=== PATIENT | female | born 1960 | race Two or more races ===

== ENCOUNTER 2022-06-20 07:37 | Outpatient (REF) | payer OTHER, SELFPAY ==
[2022-06-20 11:13] LABS: MANUAL DIFF FLAG NO
[2022-06-20 11:23] LABS: Basophils Absolute Auto 0.1 X10*3/uL (0.0-0.2); Basophils Percent Auto 1.4 % (0-2); Eosinophils Absolute Auto 0.2 X10*3/uL (0.0-0.4); Hematocrit 38.5 % (37.0-47.0); Hemoglobin 12.2 g/dl (12.0-16.0); Imm Gran Abs Auto 0.01 X10*3/uL (0.00-0.03); Imm Gran Pct Auto 0.2 % (0.0-0.4); Lymphocytes Absolute Auto 0.8 X10*3/uL (1.2-4.9); Lymphocytes Percent Auto 15.8 % (20-40); Mean Corpuscular HGB Conc 31.7 g/dl (31.0-35.0); Mean Corpuscular Hemoglobin 28.4 pg (27.0-33.0); Mean Corpuscular Volume 89.7 fL (80.0-98.0); Mean Platelet Volume 12.5 fL (9.4-12.3); Monocytes Absolute Auto 0.5 X10*3/uL (0.1-1.2); Monocytes Percent Auto 9.6 % (2-11); Neutrophils Absolute Auto 3.5 x10*3/uL (2.0-8.3); Platelet Count 185 X10*3/uL (160-400); Red Blood Count 4.29 X10*6/uL (4.20-5.50); Red Cell Distribution Width 12.6 % (11.0-16.0)
[2022-06-20 12:04] LABS: Alanine Aminotransferase 11 U/L (0-31); Albumin Level 4.2 g/dL (3.5-5.0); Alkaline Phosphatase 48 U/L (39-117); Anion Gap 14 (12-20); Aspartate Amino Transferase 16 U/L (5-31); Bilirubin Total 0.4 mg/dL (0.0-1.0); Blood Urea Nitrogen 20 mg/dL (9-16); Calcium 9.1 mg/dL (8.4-10.2); Carbon Dioxide 28 mmol/L (22-29); Chloride 107 mmol/L (96-108); Cholesterol 260 mg/dL; Estimated Glomerular Filt Rate > 60; Glucose Fasting 83 mg/dL (60-99); HDL Cholesterol 45 mg/dL; LDL Cholesterol Calculated 173 mg/dl; Potassium 4.6 mmol/L (3.3-5.1); Sodium 144 mmol/L (135-145); Total Protein 6.8 g/dL (6.5-8.0); Triglycerides 214 mg/dL
[2022-06-20 12:25] LABS: TSH reflex Free T4 1.96 uIU/mL (0.32-4.0)
[2022-06-20 12:35] LABS: Folate > 20.0 ng/mL (> or = 4.0); Vitamin B12 1049 pg/mL (200-900)
== END 2022-06-20 07:38 | disposition home or self-care (01) ==
LOC: HO.WFDLDS 07:37
PROVIDERS: Visit Provider Family Medicine
DX: Z00.00 Encounter for general adult medical examination without abnormal findings (principal); E53.8 Deficiency of other specified B group vitamins
CPT/HCPCS: 36415; 80053; 80061; 82607; 82746; 84443; 85025

== ENCOUNTER → 2022-09-11 10:36 | Outpatient (BNVA) | payer OTHER, SELFPAY | PROVIDERS: PCP Family Medicine; Visit Provider Psychiatry & Neurology Neurology | DX: G35 Multiple sclerosis (principal) | CPT/HCPCS: 99202 ==

== ENCOUNTER → 2022-12-31 08:11 | Outpatient (BNVA) | payer OTHER, SELFPAY | PROVIDERS: PCP Family Medicine; Visit Provider Physician Assistant | DX: K59.09 Other constipation (principal); Z12.11 Encounter for screening for malignant neoplasm of colon | CPT/HCPCS: 99202 ==

== ENCOUNTER 2022-12-31 09:05 | Outpatient (REF) | payer OTHER, SELFPAY ==
[2022-12-31 12:09] LABS: Cholesterol 269 mg/dL; HDL Cholesterol 54 mg/dL; LDL Cholesterol Calculated 197 mg/dl; Triglycerides 90 mg/dL
== END 2022-12-31 09:06 | disposition home or self-care (01) ==
LOC: HO.WFDLDS 09:05
PROVIDERS: Visit Provider Family Medicine
DX: Z01.818 Encounter for other preprocedural examination (principal); K59.00 Constipation, unspecified; E78.5 Hyperlipidemia, unspecified
CPT/HCPCS: 36415; 80061

== ENCOUNTER 2023-10-21 06:49 | Day surgery (SDC) | payer OTHER, SELFPAY ==
--- NOTE | 2023-10-20 13:33 | HO.ANESPROP2 ---
Documented by User: Hannah Thurston NP 10/20/23 13:34 HPI - Anesthesia Eval Consult details Narrative: 63yo F for Colonoscopy PMFSH Active Problems Active Problems: All Active Problems (Updated 12/31/22 @ 09:08 by Nelli Campbell PA-C) Encounter for screening colonoscopy (Acute) Multiple sclerosis (Acute) Postmenopausal (Acute) Immunization counseling (Acute) Screening for osteoporosis (Acute) Constipation (Acute) Hyperlipidemia (Acute) Screening for cervical cancer (Acute) Screening for colon cancer (Acute) Encounter for general adult medical examination without abnormal findings (Acute) Unsteady gait (Acute) Depression (Acute) Toothache (Acute) Screening for breast cancer (Acute) Multiple sclerosis (Acute) Laboratory exam ordered as part of routine general medical examination (Acute) Past Medical History Medical History Multiple sclerosis Social History Social History Housing: Apartment Alcohol intake: never Patient Tobacco Use Status: Never used Tobacco e-Cigarette/Vaping Use: Never Used Second Hand Smoke Exposure: No Are you DNR?: No Advance Directives: No Advance Directives Information Provided: Yes Nutrition Risks: No Nutritional Risk service: No Current occupational status: disabled Current occupational exposures/hazards: No Cognitive needs: No Hearing needs: No Vision needs: No Meds Allergies Allergy/AdvReac Type Severity Reaction Status Date / Time Sulfa (Sulfonamide Allergy Mild Rash Verified 10/21/23 07:08 Antibiotics) Penicillins Allergy Rash Verified 10/21/23 07:07 Home Medications Medication Instructions Recorded Confirmed Last Taken Type vitamin B complex 1 tab PO DAILY 09/11/22 09/11/22 Unknown History Assessment and Plan Assessment Anesthesia Assessment: Chart Reviewed Documented by User: London Morales MD 10/21/23 07:55 PMFSH Past Medical History Medical History Multiple sclerosis Family History Family history of problems with anesthesia: No Surgical History History of Problems with Anesthesia: No Social History Social History Housing: Apartment Alcohol intake: never Patient Tobacco Use Status: Never used Tobacco e-Cigarette/Vaping Use: Never Used Second Hand Smoke Exposure: No Are you DNR?: No Advance Directives: No Advance Directives Information Provided: Yes Nutrition Risks: No Nutritional Risk service: No Current occupational status: disabled Current occupational exposures/hazards: No Cognitive needs: No Hearing needs: No Vision needs: No Meds Allergies Allergy/AdvReac Type Severity Reaction Status Date / Time Sulfa (Sulfonamide Allergy Mild Rash Verified 10/21/23 07:08 Antibiotics) Penicillins Allergy Rash Verified 10/21/23 07:07 Home Medications Medication Instructions Recorded Confirmed Last Taken Type vitamin B complex 1 tab PO DAILY 09/11/22 09/11/22 Unknown History Exam Airway Mallampati Class: II TM Dist: >3cm Neck ROM: Limited Heart: rrr Lungs: cta Assessment and Plan Assessment Anesthesia Assessment: Anesthesia Plan Discussed Final Anesthetic Review Family History of Problems with Anesthesia: No History of Problems with Anesthesia: No NPO: Yes ASA Class: III Patient Risk: Intermediate Procedure Risk: Low Anesthetic Plan Anesthetic Plan: MAC: and Agree w/ Assess. and Plan Disposition: Standard PACU
[2023-10-21 06:52] VITALS: BMI 29.9
[2023-10-21 07:06] VITALS: BP 133/70; PULSE 81; RESP 20; TEMP 36.4; O2SAT 97
[2023-10-21] MEDS: Lactated Ringers 1,000 ML 100 ML IVCONT (07:33)
--- NOTE | 2023-10-21 08:07 | MHC.SHP ---
Pre-Procedural Eval Section A Date of Service: 10/21/23 Section B Chief Complaint: Constipation, unspecified Relevant Family History (Specify if Yes): No Relevant Social History: None Present Medications: see Short Stay Collaborative assessment Medical History: Significant History (Multiple sclerosis) History of Previous Operations: No relevant previous surgery Allergies: Allergies Allergy/AdvReac Type Severity Reaction Status Date / Time Sulfa (Sulfonamide Allergy Mild Rash Verified 10/21/23 07:08 Antibiotics) Penicillins Allergy Rash Verified 10/21/23 07:07 Review of Systems Sugical H&P ROS: Negative: Constitution, Cardiovascular, Respiratory, Neurological, Psychiatric, Hem-Onc, Allergic/Immunologic, Gastrointestinal, Genitourinary, Musculoskeletal, Integumentary, Endocrine and Eyes/Ears/Nose/Throat Exam Surgical H&P Exam: Normal: HEENT, Normal: Heart, Normal: Lungs, Normal: Extremities, Normal: Abdomen and Normal: Skin and Significant Findings: Neurological (weakness in arms and legs) Plan Diagnosis/Plan: Unchanged I have reviewed the history and physical and performed a pertinent physical examination on my patient. No changes have occurred unless specified. Time Spent With Patient Time: Total time managing care of this patient today ____ minutes.
--- NOTE | 2023-10-21 08:40 | P.OP_ITS ---
Operative Note Operative Note Date of Service: 10/21/23 Narrative: Operative Information Procedure Description: Colonoscopy Indication: screening Anesthesia: MAC COLONOSCOPY Instrument: Olympus variable stiffness pediatric scope 190L Colonoscopy Monitoring: Vital signs and clinical assessment, continuous EKG monitoring, Pulse oximetry, Carbon Dioxide monitoring and blood pressure monitoring were done throughout the procedure. Colon withdrawal time was 8 minutes. Procedure: The patient was placed in the left lateral decubitis position and pre-procedure medications were administered. After a digital rectal examination of the ano-rectum, the video colonoscope was inserted into the rectum and advanced through the colon to the cecum/TI. The colonoscope was slowly withdrawn in a retrograde panoramic fashion and the colon mucosa was carefully examined including a retroflexed view of the rectum. Findings and interventions are described below. Procedure Difficulty: moderate,t ortuous colon Findings: Terminal Ileum-normal Cecum:normal Ascending Colon: normal Transverse Colon -normal Descending Colon:normal Sigmoid Colon: normal Rectum: Retroflexion with small internal hemorrhoids, grade I Anorectum - normal Colon preparation: [place] Bowel Preparation Scale Right colon; 3 Transverse colon: 3 Left colon; 3 (0 = Unprepared colon segment with mucosa not seen due to solid stool that cannot be cleared. 1 = Portion of mucosa of the colon segment seen, but other areas of the colon segment not well seen due to staining, residual stool and/or opaque liquid. 2 = Minor amount of residual staining, small fragments of stool and/or opaque liquid, but mucosa of colon segment seen well. 3 = Entire mucosa of colon segment seen well with no residual staining, small fragments of stool or opaque liquid) Impression and Post Procedure Diagnosis: internal hemorrhoids Plan: High fiber diet leaflet Avoid straining at stool, epsom salts and sitz bath, anusol supps or cream Repeat Colonoscopy in 10 years or earlier if clinically indicated Above findings were reviewed with the patient and relevant handouts were provided if indicated.
[2023-10-21 08:42] VITALS: BP 137/66; PULSE 66; RESP 16; TEMP 36.8; O2SAT 99
[2023-10-21 08:57] VITALS: BP 134/66; PULSE 70; RESP 16; O2SAT 100
== END 2023-10-21 09:35 | disposition home or self-care (01) ==
PROVIDERS: PCP Family Medicine; Visit Provider Internal Medicine Gastroenterology
PROC: 0DJD8ZZ Inspection of Lower Intestinal Tract, Via Natural or Artificial Opening Endoscopic (ICD-10-PCS; CPT 45378; principal; 2023-10-21 08:20)
DX: Z12.11 Encounter for screening for malignant neoplasm of colon (principal); K56.2 Volvulus; K64.0 First degree hemorrhoids; K59.00 Constipation, unspecified; G35 Multiple sclerosis; Z79.899 Other long term (current) drug therapy; E78.5 Hyperlipidemia, unspecified
CPT/HCPCS: 45378; J2704

== ENCOUNTER → 2023-10-21 06:49 | Outpatient (BNV) | payer OTHER, SELFPAY | PROVIDERS: PCP Family Medicine; Visit Provider Internal Medicine Gastroenterology | DX: Z12.11 Encounter for screening for malignant neoplasm of colon (principal); K64.0 First degree hemorrhoids | CPT/HCPCS: 45378 ==

== ENCOUNTER 2025-01-25 08:22 | Outpatient (AMB) | payer OTHER, SELFPAY ==
--- NOTE | 2025-01-25 08:37 | A.OFFPC_ITS ---
Vital Signs 01/25/25 08:41 Height 5 ft Weight 147 lb 4 oz BMI 28.8 BP 120/70 Blood Pressure Location Rt brachial Position Sitting Respiration 14 Pulse 62 Pulse Source Pulse Oximeter Temp 98.6 F Temp Source Oral Pulse Oximetry (%) 99 Oxygen Delivery Method Room Air Intake Visit Reasons: Swelling in the Right Foot/ ophthalmology referral Intake Note: Patient is here today to followup on right foot swelling and a ophthalmology referral Hospice Home Health Aide Required: No Allergies Sulfa (Sulfonamide Antibiotics) Allergy (Mild, Verified 01/25/25 08:40) Rash Penicillins Allergy (Verified 01/25/25 08:40) Rash Medication List - Last Reconciled 01/25/25 by Michel Khan MD carbamazepine ER (Tegretol XR) mg PO escitalopram oxalate 10 mg PO DAILY vitamin B complex 1 tab PO DAILY Tobacco use date assessed: 06/19/22 [facility] Medical History (Updated 01/25/25 @ 09:09 by Michel Khan MD) Multiple sclerosis Surgical History (Updated 10/24/23 @ 11:50 by Jacqueline Franklin) Hx of colonoscopy Social History Housing: Apartment Alcohol intake: never Patient Tobacco Use Status: Never used Tobacco e-Cigarette/Vaping Use: Never Used Second Hand Smoke Exposure: No service: No Current occupational status: disabled Current occupational exposures/hazards: No Cognitive needs: No Hearing needs: No Vision needs: No Questionnaire PHQ-9 Over the last 2 weeks, how often have you been bothered by any of the following problems? 1. Little interest or pleasure in doing things: several days 2. Feeling down, depressed, or hopeless: several days 3. Trouble falling or staying asleep, or sleeping too much: several days 4. Feeling tired or having little energy: several days 5. Poor appetite or overeating: not at all 6. Feeling bad about yourself - or that you are a failure or have let yourself or your family down: several days 7. Trouble concentrating on things, such as reading the newspaper or watching television: several days 8. Moving or speaking so slowly that other people could have noticed. Or the opposite - being so fidgety or restless that you have been moving around a lot more than usual: not at all 9. Thoughts that you would be better off or of hurting yourself in some way: several days Total score: 7 Source: Developed by Drs. Meir Young, Tiff Mane, Chucky Navarro and colleagues, with an educational ayala from [employer]. Thrive Questionnaire I am a: Parent/Caregiver What is your living situation today?: I have a steady place to live Within the past 12 months, did the food you bought not last and you didn't have the money to get more?: Never true Within the past 12 months, did you worry whether your food would run out before you got money to buy more?: Never true Do you have trouble paying for medicines?: No Do you have trouble getting transportation to medical appointments?: Yes Do you have trouble paying your heating and electricity bill?: No Do you have trouble taking care of your child, family member or friend?: Yes Do you have trouble with day-to-day activities such as bathing, preparing meals, shopping, managing finances, etc.?: No Are you currently unemployed and looking for a job?: No Are you interested in more education?: Yes Please select the resources that you would like help with: Transportation, Care for elder or disabled and Daily support Currently or been in a relationship where the following occur: No concerns reported THRIVE Score: 1 AUDIT C Alcohol Use Questionnaire (AUDIT-C) 1. How often do you have a drink containing alcohol?: Never Total Score: 0 JORDAN-7 AMB Questionnaire JORDAN-7 Date JORDAN - 7 assessed: 06/19/22 Feeling nervous, anxious, or on edge: 0 = Not at all Not being able to stop or control worryin = Not at all Worrying too much about different things: 0 = Not at all Trouble relaxin = Several days Being so restless that it is hard to sit still: 0 = Not at all Becoming easily annoyed or irritable: 0 = Not at all Feeling afraid as if something awful might happen: 0 = Not at all Total JORDAN-7 score (0-4 normal; 5-9 mild; 10-14 moderate; 15-21 severe): 1 Source: Developed by Tiff Trevizo Kurt Kroenke and colleagues, with an educational ayala from [employer]. Review of Systems Const Denies chills, Denies fatigue, Denies fever(s), Denies headache(s) and Denies weakness ENT Denies dizziness and Denies headache(s) Card Denies dyspnea Resp Denies cough, Denies dyspnea, Denies wheezing and Denies other (shortness of breath) Musc Denies numbness and Denies tingling Neuro Denies dizziness, Denies headache(s), Denies numbness, Denies tingling and Denies weakness Psych Denies anxiety and Denies depression Endo Denies fatigue Aller/Immun Denies wheezing Physical exam (Primary Care) Vital Signs: Last Vital Signs Temp 98.6 F 01/25/25 08:41 Pulse 62 01/25/25 08:41 Resp 14 01/25/25 08:41 BP 120/70 01/25/25 08:41 Pulse Ox 99 01/25/25 08:41 Oxygen Delivery Method Room Air 01/25/25 08:41 BMI result Body Mass Index 28.8 Tobacco/Smoking Status: Tobacco use Status Tobacco use date assessed 06/19/22 01/25/25 08:38 Patient Tobacco Use Status Never used Tobacco 01/25/25 08:38 e-Cigarette/Vaping Use Never Used 01/25/25 08:38 PHQ-9: PHQ-9 Score PHQ-9: Total score 7 01/25/25 08:38 Currently or been in a relationship where the following occur: No concerns reported Const General: well developed; No acute distress Nutritional Appearance: well nourished Orientation/consciousness: patient oriented x3 HENMT Head: Yes normocephalic and Yes atraumatic Eyes General: appearance normal, both eyes and all related structures Pupils: Equal, round and reactive pupils present EOM: EOMs intact bilaterally Resp Effort & Inspection: normal respiratory effort Neuro General: patient oriented x3 and gait normal Cranial nerves: Yes Equal, round and reactive pupils present Extrem Other: Mild R foot and ankle swelling, trace edema. No tenderness Psych Affect: normal affect Coding Level of Care Code Est Pt Level 4 (88179) Diagnoses Swelling of right foot M79.89 Muscle ache of extremity M79.18 Generalized weakness R53.1 Multiple sclerosis G35 Assessment & Plan Assessment & Plan (1) Swelling of right foot: Code(s): M79.89 - Other specified soft tissue disorders Category: Medical Plan: Swelling?at?right?foot.??S/p?mild spring. This?is?nearly?resolved Elevate?foot (2) Muscle ache of extremity: Code(s): M79.18 - Myalgia, other site Category: Medical Plan: Diffuse?muscle?aches?and?worse?left?shoulder?and?left?hip Ice/heat,?NSAIDs?and?will?refer?to?[facility]?for physical?therapy (3) Generalized weakness: Code(s): R53.1 - Weakness Category: Medical Plan: History?of?multiple?sclerosis?and?has?generalized?weakness Will?have?[facility]?start?physical?therapy (4) Multiple sclerosis: Code(s): G35 - Multiple sclerosis Category: Medical Plan: Followed?at[facility] Recent?MRI?shows?stability?of?lesions?in?brain Recently?switched?gabapentin?to?carbamazepine Continues?Ocrevus Stable Follow-up?with?Neurology?at?[facility]?as?recommended Orders: Orders Complete Blood Count Auto Diff Today Z00.00 - Encounter for general adult medical examination without abnormal findings Microalbumin, Random (w Creat) Today I10 - Essential (primary) hypertension TSH reflex Free T4 Today Z00.00 - Encounter for general adult medical examination without abnormal findings MM tomosynthesis screening BI Today Z12.31 - Encounter for screening mammogram for malignant neoplasm of breast Comprehensive [place]. Panel Fast Today Z00.00 - Encounter for general adult medical examination without abnormal findings Lipid Panel Today Z00.00 - Encounter for general adult medical examination without abnormal findings UA and rflx microscopic Today Z00.00 - Encounter for general adult medical examination without abnormal findings XR DEXA axial skeleton Today M81.0 - Age-related osteoporosis without current pathological fracture [facility]errals [facility] Referral G35 - Multiple sclerosis, M79.18 - Myalgia, other site, R26.81 - Unsteadiness on feet, R53.1 - Weakness Medications: New naproxen 500 mg PO BID 30 days PRN 60 tabs 1RF pain
[2025-01-25 08:41] VITALS: BP 120/70; PULSE 62; RESP 14; TEMP 37; O2SAT 99; BMI 28.8
--- OUTSIDE RECORDS SUMMARY | 2025-01-25 09:01 | XMS_ITS ---
Author Name [facility] Organization Unknown History of Medication Use Medication Directions Dispensed Refills Start Date End Date Status ocrelizumab (OCREVUS) 600 mg in sodium chloride (NS) 0.9 % 500 mL IVPB 600 mg, Intravenous, Once, On Fri02/17/24 at 1115, For 1 doseMust use in-line 0.22 micron filter. ??- Infusion Rate for first full 600 mg dose or reaction with previous infusion: Start at 40 mL/hr. Increase by 40 mL/hr every 30 minutes. Maximum rate: 200 mL/hr. Duration: 3.5 hours or longer.??- Infusi 3 02/17/20 24 completed gabapentin (NEURONTIN) 100 MG capsule Take 1 capsule (100 mg total) by mouth 3 (three) times a day. 4 active B Complex Vitamins (B COMPLEX 1 PO) Take by mouth. acti ve acetaminophen (TYLENOL) tablet 975 mg 975 mg, Oral, Once, On Fri02/17/24 at 1115, For 1 doseGive 30 minutes prior to ocrelizumab. 3 02/17/20 24 completed gabapentin (NEURONTIN) 400 MG capsule Take 1 capsule (400 mg total) by mouth 3 (three) times a day. 4 active diphenhydrAMINE (BENADRYL) injection 50 mg 50 mg, Intravenous, Once, On Fri02/17/24 at 1115, For 1 doseGive 30 minutes prior to ocrelizumab. IV push over 2-3 minutes.??See PO diphenhydramine order. Please give PO or IV.??Common Side Effects: Drowsiness, stomach upset, confusion, dry mouth.??Administer undiluted. Maximum rate 25 mg/min. 3 02/17/20 24 completed vitamin B-12 (CYANOCOBALAMIN) 100 MCG tablet Take 0.5 tablets (50 mcg total) by mouth daily. active Problems Problem Status Onset Date Problem Type Date of Resoluti on Source Multiple sclerosis active 2023-02-04 ProblemAct [id number]
--- OUTSIDE RECORDS SUMMARY | 2025-01-25 09:01 | XMS_ITS | Clinical Summary ---
Author Organization [address] [facility] Address [address] [place] [address] Phone Care Team Providers Care Fitness Trainer Name Role Phone Michel Khan MD Primary Care Provider Allergies Active Allergy Reactions Criticality Noted Date Comments Penicillins 01/02/2023 Sulfa (Sulfonamide Antibiotics) 12/18 Medications vit B complx/folic acid/lysine (B COMPLEX VITAMINS PO) Take by mouth. Active CALCIUM CARBONATE-VITAM IN D3 ORAL Take by mouth. Active ergocalciferol (VITAMIN D-2) 1,250 mcg (50,000 unit) capsule Take 1 capsule (50,000 Units total) by mouth once a week. 05/02/2023 Active cyanocobalamin (VITAMIN B-12) 100 mcg tablet Take 0.5 tablets (50 mcg total) by mouth daily. Active escitalopram (Lexapro) 10 mg tablet Take 1 tablet (10 mg total) by mouth 1 (one) time each day. 30 each 5 10/04/2024 Active carBAMazepine XR (TEGretol XR) 100 mg 12 hr tablet Take 1 tablet (100 mg total) by mouth at bedtime for 5 days, THEN 1 tablet (100 mg total) 2 (two) times a day for 7 days, THEN 2 tablets (200 mg total) 2 (two) times a day. Do not crush, chew, or split.. 259 tablet 11/12/2024 Active gabapentin (NEURONTIN) 400 mg capsule Take 1 capsule (400 mg total) by mouth 3 (three) times a day for 5 days, THEN 1 capsule (400 mg total) 2 (two) times a day for 7 days, THEN 1 capsule (400 mg total) at bedtime. 90 capsule 3 11/12/2024 Active Active Problems Problem Noted Date Diagnosed Date Multiple sclerosis 02/04/2023 Encounters Date Type Department Care Team Description 01/05/2025 Telephone [facility] [place] Outpatient Rehabilititation - [address] [phone] Meghan Low MD OCREVUS AUTH RQST; AUTH NOT REQRD 12/24/2024 9:30 AM EST Office Visit [address] [phone] Theresa Kendrick PA Multiple sclerosis ([facility]) (Primary Dx); Trigeminal neuralgia 12/03/2024 2:33 PM EST - 12/03/2024 11:59 PM EST Hospital Encounter [facility] MRI [address] [place] [phone] MS (multiple sclerosis) ([facility]) Discharge Disposition: Home or Self Care 12/03/2024 2:22 PM EST - 12/03/2024 11:59 PM EST Hospital Encounter [facility] MRI [address] [place] [phone] MS (multiple sclerosis) ([facility]) Discharge Disposition: Home or Self Care 11/12/2024 12:30 PM EST Office Visit [address] [phone] Meghan Low MD Multiple sclerosis ([facility]) (Primary Dx); High risk medication use; Trigeminal neuralgia; Gait abnormality from Last 3 Months Medical History Medical History Date Comments MS (multiple sclerosis) ([facility]) DX:MS (multiple sclerosis) ([facility]) Social History Tobacco Use Types Packs/Day Years Used Date Smoking Tobacco: Never Smokeless Tobacco: Never Tobacco Cessation:Counseling Given: Not Answered Alcohol Use Standard Drinks/Week Comments Never 0 (1 standard drink = 0.6 oz pur e alcohol) Comments Unknown Sex and Gender Information Value Date Recorded Sex Assigned at Not on file Legal Sex Female 8:59 PM EST Gender Identity Not on file Sexual Orientation Not on file Obstetrics History Last Filed Vital Signs Vital Sign Reading Time Taken Comments Blood Pressure 133/76 11/12/2024 12:32 PM EST Pulse 65 11/12/2024 12:32 PM EST Temperature 36.4 ??C (97.6 ??F) 11/12/2024 12:[address] Respiratory Rate - - Oxygen Saturation 99% 11/12/2024 12:32 PM EST Inhaled Oxygen Concentration - - Weight 65.8 kg (145 lb) 12/03/2024 3:01 PM EST Height 152.4 cm (5') 05/25/2024 10:14 AM EDT Body Mass Index 28.32 05/25/2024 10:14 AM EDT Plan of Treatment Upcoming Encounters Date Type Department Care Team (Late st Contact Info) Description 02/17/2025 8:00 AM EDT Appointment [facility] [place] Outpatient Rehabil[facility]itation [address] [phone] Health Maintenance Due Date Last Done Comments Breast Cancer Screening 1960 DTaP,Tdap,and Td Vaccines (1 - Tdap) 1981 Cervical Cancer Screening: P ap Smear 1983 Pneumococcal Vaccine: 50+ Ye ars (1 of 1 - PCV) 02/25/2012 Zoster Vaccines (1 of 2) 02/25/2012 Colorectal Cancer Screening: Colonoscopy 01/12/2023 Depression Screening 01/12/2023 HIV Screening 01/12/2023 Hepatitis C Screening 01/12/2023 Social Influencers of Health Screening 01/12/2023 COVID-19 Vaccine (1 - 2023-2 5 season) 2024 Influenza Vaccine (#1) 2024 09/05/2022 RSV Immunization Patients 60 + Years Old (1 - 1-dose 75+ series) 2037 HIB Vaccines Aged Out No longer eligi ble based on patient's age to complete this topic HPV Vaccines Aged Out No longer eligi ble based on patient's age to complete this topic Hepatitis A Vaccines Aged Out No long er eligible based on patient's age to complete this topic Hepatitis B Vaccines Aged Out No long er eligible based on patient's age to complete this topic IPV Vaccines Aged Out No longer eligi ble based on patient's age to complete this topic MMR Vaccines Aged Out No longer eligi ble based on patient's age to complete this topic Meningococcal ACWY Vaccine Aged Out N o longer eligible based on patient's age to complete this topic Meningococcal B Vacine Aged Out No lo nger eligible based on patient's age to complete this topic Pneumococcal Vaccine: Pediat rics (0 to 5 Years) and At-Risk Patients (6 to 64 Years) Aged Out No longer eligi ble based on patient's age to complete this topic RSV Immunization Patients Un matheus 20 months Aged Out No longer eligible b ased on patient's age to complete this topic Varicella Vaccines Aged Out No longer eligible based on patient's age to complete this topic Procedures Procedure Name Priority Date/Time Associated Diagnosis Comments LOZADA URINE CULTURE TUBE Routine 12/24/2024 10:59 AM EST Multiple sclerosis (CMS/HCC) URINALYSIS WITH REFLEX MICROSCOPIC AND CULTURE Routine 12/24/2024 10:59 AM EST Multiple sclerosis (CMS/HCC) URINALYSIS WITH REFLEX MICROSCOPIC AND CULTURE Routine 12/24/2024 10:59 AM EST Multiple sclerosis (CMS/HCC) CULTURE URINE Routine 12/24/2024 10:59 AM EST Multiple sclerosis (CMS/HCC) CARBAMAZEPINE LEVEL, TOTAL Routine 12/24/2024 9:37 AM EST Multiple sclerosis (CMS/HCC) Trigeminal neuralgia MR CERVICAL SPINE WO AND W CONTRAST Routine 12/03/2024 4:18 PM EST MS (multiple sclerosis) (CMS/HCC) MR BRAIN WO AND W CONTRAST Routine 12/03/2024 4:18 PM EST MS (multiple sclerosis) (CMS/HCC) from Last 3 Months Results * (ABNORMAL) Urinalysis with reflex microscopic and culture (12/24/2024 10:59 AM EST) Specific [place] Urine 1.018 1.003 - 1.030 LAB URINALYSIS - AUTOMATED METHOD 12/24/2024 2:23 PM [facility] pH, Urine 6.5 5.0 - 8.0 pH LAB URINALYSIS - AUTOMATED METHOD 12/24/2024 2:23 PM [facility] Leukocytes, Urine Trace(A) Negative LAB URINALYSIS - AUTOMATED METHOD 12/24/2024 2:23 PM [facility] Nitrite, Urine Negative Negative LAB URINALYSIS - AUTOMATED METHOD 12/24/2024 2:23 PM [facility] Protein, Urine Negative <=Trace mg/dL LAB URINALYSIS - AUTOMATED METHOD 12/24/2024 2:23 PM [facility] Glucose, Urine Negative Negative mg/dL LAB URINALYSIS - AUTOMATED METHOD 12/24/2024 2:23 PM [facility] Ketones, Urine Negative Negative mg/dL LAB URINALYSIS - AUTOMATED METHOD 12/24/2024 2:23 PM [facility] Urobilinogen, Urine 0.2 0.2 - 1.0 mg/dL LAB URINALYSIS - AUTOMATED METHOD 12/24/2024 2:23 PM [facility] Bilirubin, Urine Negative Negative LAB URINALYSIS - AUTOMATED METHOD 12/24/2024 2:23 PM [facility] Blood, Urine Negative Negative LAB URINALYSIS - AUTOMATED METHOD 12/24/2024 2:23 PM [facility] RBC, Urine 2 0 - 4 /HPF LAB URINALYSIS - AUTOMATED METHOD 12/24/2024 2:23 PM [facility] WBC, Urine 6.4(H) 0 - 4 /HPF LAB URINALYSIS - AUTOMATED METHOD 12/24/2024 2:23 PM [facility] Squamous Epithelial, Urine 25 0 - 60 /LPF LAB URINALYSIS - AUTOMATED METHOD 12/24/2024 2:23 PM [facility] Bacteria, Urine Negative Negative /HPF LAB URINALYSIS - AUTOMATED METHOD 12/24/2024 2:23 PM [facility] Hyaline Casts, Urine 0.0 0 - 3 /LPF LAB URINALYSIS - AUTOMATED METHOD 12/24/2024 2:23 PM [facility] Urine Urine specimen obtained by clean catch procedure / Unknown Non-blood Collection / Unknown 12/24/2024 10:59 AM EST 12/24/2024 10:59 AM EST [facility] URINE ORDERABLES Final R esult Performing Organization Address [facility]/ZIP Co de Phone Number [facility] [address] [place] [address], [place] [phone] * Lozada urine culture tube (12/24/2024 10:59 AM EST) Extra Tube Hold for add-ons. 12/24/2024 4:01 PM [facility] Comment:Auto resulted. Urine Urine specimen obtained by clean catch procedure / Unknown Non-blood Collection / Unknown 12/24/2024 10:59 AM EST 12/24/2024 10:59 AM EST [facility] URINE ORDERABLES Final R esult Performing Organization Address City/[facility]/ZIP Co de Phone Number [facility] [address] [place] [address], [place] [phone] * Culture urine (12/24/2024 10:59 AM EST) Culture, Urine >100,000 CFU/mL Mixed urogenital jayant, no uropathogens present. Suggest repeat specimen if clinically indicated. 12/26/2024 10:11 AM [facility] Urine Urine specimen obtained by clean catch procedure / Unknown Non-blood Collection / Unknown 12/24/2024 10:59 AM EST 12/24/2024 2:23 PM EST Theresa SWEENEY LAB MICROBIOLOGY - GENERAL O RDERABLES Final Result Performing Organization Address [facility]/ZIP Co de Phone Number [facility] [address] [place] [address], [place] [phone] * (ABNORMAL) Carbamazepine level, total (12/24/2024 9:37 AM EST) Carbamazepine Level 5.4(L) 8.0 - 12.0 mcg/mL LAB CHEMISTRY METHOD 12/24/2024 2:36 PM EST [facility] Blood Venous blood specimen / Unknown Venipuncture / Unknown 12/24/2024 9:37 AM EST 12/24/2024 9:37 AM EST Theresasheeba Kendrick PA LAB BLOOD ORDERABLES Final R esult Performing Organization Address [facility] Co de Phone Number [facility] [address] [place] [address], [place] [phone] * MR Cervical Spine wo and w Contrast (12/03/2024 4:18 PM EST) Anatomical Region Laterality Modality C-spine, Spine Magnetic Resonan ce 12/06/2024 4:55 PM EST Impressions 12/06/2024 5:59 PM EST Evaluation for demyelinating lesions in the cervical cord is limited by significant motion artifact on the sagittal FLAIR sequence. ??There is no appreciable interval change in appearance of the cord and no contrast enhancement to suggest active demyelination. -------- FINAL REPORT -------- Dictated By: Syed Puckett Dictated Date: 12/06/2024 16:55 ET Assigned Physician: Syed Puckett Reviewed and Electronically Signed By: Syed Puckett Signed Date: 12/06/2024 17:59 ET Workstation ID: [id number] Transcribed By: Self Edit Transcribed Date: 12/06/2024 16:55 ET Narrative 12/06/2024 5:59 PM EST PROCEDURE: MRI of the cervical spine with intravenous contrast. HISTORY: Multiple sclerosis, monitor. COMPARISON: 10/30/2023. TECHNIQUE: Sagittal and axial multisequence MRI of the cervical spine with and without intravenous contrast. IV contrast dose: 13 mL Dotarem administered from a 15 mL vial with 2 mL discarded. FINDINGS: Please see the accompanying dedicated MRI brain report for findings involving the brain and skull base. The paraspinous soft tissues are normal. Straightening of the typical cervical lordosis. ??No concerning marrow infiltrative lesion. ??No listhesis. There is significant motion on the sagittal inversion recovery sequence which limits evaluation for demyelinating lesions in the cord. Patchy signal abnormality in the right lateral and left dorsal cord at the level of the superior C3 endplate is unchanged. ??A small lesion in the right lateral cord at the level of the superior C6 endplate is unchanged. ??No abnormal cord enhancement. Cervical disc levels: C2-3: The facet joints are fused. ??Mild endplate irregularity. ??No spinal or foraminal stenosis. C3-4: Mild endplate irregularity. ??Small left larger than right uncovertebral spurs. ??Mild bilateral facet arthropathy. ??No significant spinal or foraminal stenosis. C4-5: Mild endplate irregularity. ??Minimal bilateral uncovertebral spurs. ??Minimal degenerative irregularity of the facet joints. ??No significant spinal or foraminal stenosis. C5-6: Minimal endplate irregularity. ??No significant spinal or foraminal stenosis. C6-7: Minimal endplate irregularity. ??No spinal or foraminal stenosis. C7-T1: No significant disc or facet abnormality. ??No spinal or foraminal stenosis. Procedure Note Syed Puckett MD - 12/06/2024 PROCEDURE: MRI of the cervical spine with intravenous contrast. HISTORY: Multiple sclerosis, monitor. COMPARISON: 10/30/2023. TECHNIQUE: Sagittal and axial multisequence MRI of the cervical spine withand without intravenous contrast. IV contrast dose: 13 mL Dotarem administered from a 15 mL vial with 2 mLdiscarded. FINDINGS: Please see the accompanying dedicated MRI brain report for findingsinvolving the brain and skull base. The paraspinous soft tissues are normal. Straightening of the typical cervical lordosis. No concerning marrowinfiltrative lesion. No listhesis. There is significant motion on the sagittal inversion recovery sequencewhich limits evaluation for demyelinating lesions in the cord. Patchy signal abnormality in the right lateral and left dorsal cord at thelevel of the superior C3 endplate is unchanged. A small lesion in theright lateral cord at the level of the superior C6 endplate is unchanged.No abnormal cord enhancement. Cervical disc levels: C2-3: The facet joints are fused. Mild endplate irregularity. No spinalor foraminal stenosis. C3-4: Mild endplate irregularity. Small left larger than rightuncovertebral spurs. Mild bilateral facet arthropathy. No significantspinal or foraminal stenosis. C4-5: Mild endplate irregularity. Minimal bilateral uncovertebral spurs.Minimal degenerative irregularity of the facet joints. No significantspinal or foraminal stenosis. C5-6: Minimal endplate irregularity. No significant spinal or foraminalstenosis. C6-7: Minimal endplate irregularity. No spinal or foraminal stenosis. C7-T1: No significant disc or facet abnormality. No spinal or foraminalstenosis. IMPRESSION: Evaluation for demyelinating lesions in the cervical cord is limited bysignificant motion artifact on the sagittal FLAIR sequence. There is noappreciable interval change in appearance of the cord and no contrastenhancement to suggest active demyelination. -------- FINAL REPORT -------- Dictated By: Syed Puckett Dictated Date: 12/06/2024 16:55 ET Assigned Physician: Syed Puckett Reviewed and Electronically Signed By: Syed Puckett Signed Date: 12/06/2024 17:59 ET Workstation ID: [id number] Transcribed By: Self Edit Transcribed Date: 12/06/2024 16:55 ET us Theresa SWEENEY IMMonique MRI PROCEDURES Final Res ult * MR Brain wo and w Contrast (12/03/2024 4:18 PM EST) Anatomical Region Laterality Modality Head and Neck Magnetic Resonan ce 12/06/2024 4:55 PM EST Impressions 12/06/2024 6:08 PM EST Stable multifocal demyelinating plaques, involving the juxtacortical and periventricular supratentorial white matter, brainstem, and cerebellum. ??No new lesion or evidence of active demyelination. -------- FINAL REPORT -------- Dictated By: Syed Puckett Dictated Date: 12/06/2024 16:55 ET Assigned Physician: Syed Puckett Reviewed and Electronically Signed By: Syed Puckett Signed Date: 12/06/2024 18:08 ET Workstation ID: [id number] Transcribed By: Self Edit Transcribed Date: 12/06/2024 16:55 ET Narrative 12/06/2024 6:08 PM EST PROCEDURE: Contrast-enhanced MRI of the brain. HISTORY: Multiple sclerosis, monitor. TECHNIQUE: Multiplanar multisequence MRI of the brain with and without intravenous contrast. IV CONTRAST DOSE: 13 mL Dotarem administered from a 15 mL vial with 2 mL discarded. COMPARISON: 10/30/2023. FINDINGS BRAIN: Confluent T2 signal abnormality in the periventricular white matter and corpus callosum and multifocal juxtacortical lesions. ??Stable patchy signal abnormality in the brainstem and middle cerebral cerebellar peduncles. ??Scattered cerebellar lesions are also unchanged. ??Some of the lesions are hypointense on the T1- weighted spin-echo sequence; the T1 lesion burden is unchanged. ?? There is stable diffuse atrophy of the corpus callosum. ??No diffusion abnormality. ??No mass or extra- axial fluid collection. ??No hydrocephalus. ??The major intracranial flow voids are preserved. ??Generalized sulcal and ventricular prominence which is advanced for age. ??No abnormal enhancement. ??The volume acquisition and postcontrast gradient echo sequence is limited by motion. ??No appreciable abnormal enhancement. ORBITS: Stable signal abnormality in the posterior right optic nerve. SINUSES/MASTOIDS: Normal. CALVARIUM: Normal. OTHER: The visualized skull base soft tissues are normal. ??The C2-3 facet joints are fused. Procedure Note Syed Puckett MD - 12/06/2024 PROCEDURE: Contrast-enhanced MRI of the brain. HISTORY: Multiple sclerosis, monitor. TECHNIQUE: Multiplanar multisequence MRI of the brain with and withoutintravenous contrast. IV CONTRAST DOSE: 13 mL Dotarem administered from a 15 mL vial with 2 mLdiscarded. COMPARISON: 10/30/2023. FINDINGS BRAIN: Confluent T2 signal abnormality in the periventricular white matterand corpus callosum and multifocal juxtacortical lesions. Stable patchysignal abnormality in the brainstem and middle cerebral cerebellarpeduncles. Scattered cerebellar lesions are also unchanged. Some of thelesions are hypointense on the T1-weighted spin-echo sequence; the I3rpnkbs burden is unchanged. There is stable diffuse atrophy of thecorpus callosum. No diffusion abnormality. No mass or extra-axial fluidcollection. No hydrocephalus. The major intracranial flow voids arepreserved. Generalized sulcal and ventricular prominence which isadvanced for age. No abnormal enhancement. The volume acquisition andpostcontrast gradient echo sequence is limited by motion. No appreciableabnormal enhancement. ORBITS: Stable signal abnormality in the posterior right optic nerve. SINUSES/MASTOIDS: Normal. CALVARIUM: Normal. OTHER: The visualized skull base soft tissues are normal. The C2-3 facetjoints are fused. IMPRESSION: Stable multifocal demyelinating plaques, involving the juxtacortical andperiventricular supratentorial white matter, brainstem, and cerebellum.No new lesion or evidence of active demyelination. -------- FINAL REPORT -------- Dictated By: Syed Puckett Dictated Date: 12/06/2024 16:55 ET Assigned Physician: Syed Puckett Reviewed and Electronically Signed By: Syed Puckett Signed Date: 12/06/2024 18:08 ET Workstation ID: [id number] Transcribed By: Self Edit Transcribed Date: 12/06/2024 16:55 ET Theresa SWEENEY IMMonique MRI PROCEDURES Final Res ult from Last 3 Months Insurance * Guarantor: Ema Lilly Account Type Relation to Patient Date of Phone Billing Address Personal/Family Self [address] [place] [address] [facility] Care Teams Fitness Trainer Relationship Specialty Start Date End Date Michel Khan MD [address] [place] [address] Dr Dom [place] PCP - General Family Medicine 09/16/22
--- OUTSIDE RECORDS SUMMARY | 2025-01-25 09:03 | XMS_ITS | Encounter Summary ---
Author Organization [facility] Address [address] [place] [address] Care Team Providers Care Electrician Supervisor Airplane Name Role Phone Michel Khan MD Primary Care Provider Reason for Visit * Reason Onset Date Comments OCREVUS AUTH RQST 01/05/2025 AUTH NOT REQRD 01/05/2025 Encounter Details Date Type Department Care Team (Late st Contact Info) Description 01/05/2025 Telephone [facility] [place] [facility] - [place] [address] [phone] Meghan Low MD 175 [facility] [address] [place] [phone] OCREVUS AUTH RQST; AUTH NOT REQRD Social History Tobacco Use Types Packs/Day Years Used Date Smoking Tobacco: Never Smokeless Tobacco: Never Alcohol Use Standard Drinks/Week Comments Never 0 (1 standard drink = 0.6 oz pur e alcohol) Comments Unknown Sex and Gender Information Value Date Recorded Sex Assigned at Not on file Legal Sex Female 8:59 PM EST Gender Identity Not on file Sexual Orientation Not on file documented as of this encounter Progress Notes * Raudel Bingham - 01/06/2025 7:54 AM EST Per Giovanni- auth not reqrd for Ocrevus thru medical benefits. * Raudel Bingham - 01/05/2025 11:02 AM EST Ocrevus auth rqst forms faxed to [facility]- pending. documented in this encounter Plan of Treatment Upcoming Encounters Date Type Department Care Team (Late st Contact Info) Description 02/17/2025 8:00 AM EDT Appointment [facility] [place] [facility] - [address] [phone] documented as of this encounter Visit Diagnoses Not on filedocumented in this encounter Care Teams Electrician Supervisor Airplane Relationship Specialty Start Date End Date Michel Khan MD [address] [place] [address] Dr Hernandez [facility] [place], [place] PCP - General Family Medicine 09/16/22 documented as of this encounter
--- OUTSIDE RECORDS SUMMARY | 2025-01-25 09:03 | XMS_ITS | Encounter Summary ---
Author Organization [facility] Address [address] [place] [address] Care Team Providers Care Dependency Counselor Name Role Phone Michel Khan MD Primary Care Provider Encounter Details Date Type Department Care Team (Late st Contact Info) Description 08/18/2024 7:55 AM EDT Hospital Encounter TH HISTORIC ENCOUNTERS [facility] ONLY Meghan Low MD [address] [facility] [address] [place] [address] Social History Tobacco Use Types Packs/Day Years [...] on file documented as of this encounter Last Filed Vital Signs Vital Sign Reading Time Taken Comments Blood Pressure 124/78 08/18/2024 8:23 AM EDT Sit ting Left arm Pulse 65 08/18/2024 8:23 AM EDT Temperature - - Respiratory Rate - - Oxygen Saturation - - Inhaled Oxygen Concentration - - Weight 66.2 kg (146 lb) 05/25/2024 10:1 4 AM EDT Height 152.4 cm (5') 05/25/2024 10:14 AM EDT Body Mass Index 28.51 05/25/2024 10:14 AM EDT documented in this encounter Progress Notes * Meghan Low MD - 08/18/2024 8:00 AM EDT [facility] MULTIPLE S[facility]OSIS CC: MS HPI: Patient is a 64 y.o. year old female who presents for follow-up regarding ongoing management of multiple sclerosis. Disease Summary Date of onset/Initial symptom presentation:2002 Date of diagnosis of MS: Disease course at onset: RRMS Current disease course: active secondary progressive Last MS exacerbation: Previous disease therapies(reason for switch): betaserom, copaxone, avonex, gilenya, lemetrada Current disease therapy: Ocrevus September 2021 -off till 01/2023 another 2 split dose Most recent MRI Brain:10/30/23- stable T2 hyperintensity more confluent supra and infratentorial Most recent MRI Cervical spine:01/2023 stable and improved Most recent MRI Thoracic spine: 01/2023 CSF: JCV serology result and date: MS mimickers: mog/aqp4 ab negative SSA SSB negative vit d 24 vitamin B12 1200 Interval history Patient is here for follow up No new neurological symptom concerning for demyelination since last visit Patient still on Ocrevus tolerating it well she is getting her infusion today Since last visit she has been overall stable she denies any change in her symptoms she has been pain-free since she was in the gabapentin 400 milligram 3 times a day question of making his sleepy during the day, She denies any change in her bowel or bladder function She has been experiencing some nausea earlier today nothing persistent will add Pepcid to her infusion She had her PT OT sessions she is still getting more sessions she is being fitted for a right AFO she had her speech evaluation and she is supposed to get more sessions she have not started that yet Prolonged discussion about the patient mental health and opportunities to get out including going to the senior center also referred to behavioral health for evaluation and management Last visit History: Patient returns for EDSS exam. She continues Ocrevus for disease-modifying therapy. Her son is present and assists with history. She denies new neurological symptoms suggestive of demyelinating event since she was last seen in the office. She increased gabapentin to 400 mg tid just yesterday. Pt and her son both state that shehas not been .complaining of facial/jaw pain. She does feel that gabapentin is making her sleepy during the day but would like to continue the 400 mg dose for now. She denies new neurological symptoms suggestive of demyelinating event since she was last seen in the office. ?? At last visit we added gabapentin 100 mg tid for symptomatic treatment of facial pain. It does not sound like she has been taking this regularly. She continues to note episodes of right-sided jaw pain which happens in bursts and she will scream out according to her son. She did see her dentist after her last office visit with us and per patient's son did not think this was a dental problem. She has been using a mouthguard at night. ?? Review of Systems Constitutional: Positive for fatigue. Musculoskeletal: Positive for gait problem. Patient Active Problem List Diagnosis SNOMED CT(R) ??? Multiple sclerosis (HCC) MULTIPLE SCLEROSIS Current Outpatient Medications: ??? B Complex Vitamins (B COMPLEX 1 PO), Take by mouth., Disp: , Rfl: ??? Calcium Carb-Cholecalciferol (CALCIUM 1000 + D PO), Take by mouth., Disp: , Rfl: ??? ergocalciferol (VITAMIN D2) capsule 04521 units, Take 1 capsule (50,000 Units total) by mouth once a week., Disp: 4 capsule, Rfl: 12 ??? gabapentin (NEURONTIN) 400 MG capsule, Take 1 capsule (400 mg total) by mouth 3 (three) times aday., Disp: 90 capsule, Rfl: 5 ??? vitamin B-12 (CYANOCOBALAMIN) 100 MCG tablet, Take 0.5 tablets (50 mcg total) by mouth daily., Disp: , Rfl: Neuro Exam BP 124/78 (BP Location: Left arm, Patient Position: Sitting) Pulse 65 Temp 96.8 ??F (36 ??C) (Temporal) There is no height or weight on file to calculate BMI. MS: Oriented to the year month not the day oriented to the state not the city smoking CN: perrla,V1-3 intact to LT, face symmetric, bilateral SCM/trapezius 5/5, tongue/uvula/palate midline Motor: 5/5 in all extremities right lower extremity with weaker ankle dorsiflexion Sensation: Intact to light touch, temperature, and decreased vibration distally in both legs and hands Reflexes: 2+ in bilateral biceps and patellae Cerebellar: FNF intact bilaterally, FFM intact bilaterally, SHON intact bilaterally, difficult tandem gait, rombergPositive Walk with a walker slow steppage 25 foot timed walk: Last visit 13.1, 14.7 sec EDSS score: 6.5 A/P: Multiple Sclerosis: ??Ema Lilly is a 64 y.o. year old female with active secondary progressive multiple sclerosis treated with Ocrevus for disease modifying therapy she is clinically and radiologically stable we will continue current plan She will continue use of gabapentin 400 mg tid at this time and will monitor daytime sleepiness. She can adjust the dose into 400 mg in the afternoon and 800 at bedtime discussed with the patient Prolonged discussion with the patient about her social and memory and how to impact following speech and cognitive therapy also discussed other resources like going to [facility] A. Disease modifying therapy plan: -Continue Ocrevus per [facility] protocol -Screening labs as per protocol -MRI brain with and without contrast will be performed annually to assess for radiologic stability (to be ordered next visit) ?? B. Symptomatic treatment plan: Facial pain: continue gabapentin 400 mg tid versus changes to 400 mg in the afternoon 800 mg at night Gait impairment: Physical therapy has been scheduled Memory impairment: speech/language pathology follow-up Mood changes:discussed different options for lifestyle modification referral to behavioral health Follow-up in 4 months or sooner as needed. Patient was encouraged to call the office with any questions or concerns/change in symptoms. The patient and I discussed the clinical picture during today's appointment. Additional time was spent prior to the actual appointment reviewing records, lab values and imaging results and preparing documentation for today's visit. There was also time spent following the in person visit documenting, arranging for further diagnostic testing and follow-up appointments. The entire time spent in thisprocess was greater than 40 minutes. The majority of the actual qvjt-da-cnju visit was spent counseling the patient with respect to the current neurological picture. Meghan Low MD documented in this encounter Plan of Treatment Upcoming Encounters Date Type Department Care Team (Late st Contact Info) Description 02/17/2025 8:00 AM EDT Appointment [facility] [place] Outpatient Rehabilititation - [place] 175 [facility] [address] [place] [address] documented as of this encounter Visit Diagnoses Not on filedocumented in this encounter Care Teams Dependency Counselor Relationship Specialty Start Date End Date Michel Khan MD [address] [place] [address] [address] [place], [place] PCP - General Family Medicine 09/16/22 documented as of this encounter
--- OUTSIDE RECORDS SUMMARY | 2025-01-25 09:03 | XMS_ITS | Encounter Summary ---
Author Organization [facility] Address [address] [place] [address] Care Team Providers Care Senior Software Test Engineer Name Role Phone Michel Khan MD Primary Care Provider [phone] Encounter Details Date Type Department Care Team (Late st Contact Info) Description 08/18/2024 8:00 AM EDT Hospital Encounter TH HISTORIC ENCOUNTERS [facility] ONLY Social History Tobacco Use Types Packs/Day Years [...] Sign Reading Time Taken Comments Blood Pressure - - Pulse - - Temperature - - Respiratory Rate - - Oxygen Saturation - - Inhaled Oxygen Concentration - - Weight 66.2 kg (146 lb) 05/25/2024 10:14 AM EDT Height 152.4 cm (5') 05/25/2024 10:14 AM EDT Body Mass Index 28.51 05/25/2024 10:14 AM EDT documented in this encounter Plan of Treatment Upcoming Encounters Date Type Department Care Team (Late st Contact Info) Description 02/17/2025 8:00 AM EDT Appointment [facility] Outpatient Rehabilititation - [place] 175 [facility] [address] [place] [address] documented as of this encounter Visit Diagnoses Not on filedocumented in this encounter Care Teams Senior Software Test Engineer Relationship Specialty Start Date End Date Michel Khan MD [address] [place] [address] Dr Hernandez [address] [place], [place] PCP - General Family Medicine 09/16/22 documented as of this encounter
--- OUTSIDE RECORDS SUMMARY | 2025-01-25 09:03 | XMS_ITS | Clinical Summary ---
Author Organization [facility] Address [address] [place] [address] Care Team Providers Care Goodwill Representative Name Role Phone Michel Khan MD Primary Care Provider Allergies Active Allergy Reactions Criticality Noted Date Comments Penicillins 01/02/2023 Sulfa Antibiotics 01/02/2023 Medications Medication Sig Dispensed Refills Start Date End Date Status B Complex Vitamins (B COMPLEX 1 PO) Take by mouth. 0 Acti ve Calcium Carb-Cholecalciferol (CALCIUM 1000 + D PO) Take by mouth. 0 Active vitamin B-12 (CYANOCOBALAMIN) 100 MCG tablet Take 0.5 tablets (50 mcg total) by mouth daily. 0 Active ergocalciferol (VITAMIN D2) capsule 18223 units Take 1 capsule (50,000 Units total) by mouth once a week. 4 capsule 12 02/18/2024 Active gabapentin (NEURONTIN) 400 MG capsule Take 1 capsule (400 mg total) by mouth 3 (three) times a day. 90 capsule 5 05/05/2024 Active Active Problems Problem Noted Date Diagnosed Date Multiple sclerosis 02/04/2023 Social History Tobacco Use Types Packs/Day Years Used Date Smoking Tobacco: Never Smokeless Tobacco: Never Tobacco Cessation:Counseling Given: Not Answered Alcohol Use Standard Drinks/Week Comments Never 0 (1 standard drink = 0.6 oz pur e alcohol) Sex and Gender Information Value Date Recorded Sex Assigned at Female 09/16/2022 1:35 PM EDT Gender Identity Not on file Sexual Orientation Not on file Job Start Date Occupation Industry Not on file Not on file Not on file Last Filed Vital Signs Vital Sign Reading Time Taken Comments Blood Pressure 136/72 08/18/2024 11:49 AM EDT Pulse 60 08/18/2024 11:49 AM EDT Temperature 36.2 ??C (97.1 ??F) 08/18/2024 11:49 AM E DT Respiratory Rate 18 08/18/2024 11:49 AM EDT Oxygen Saturation 98% 08/18/2024 11:49 AM EDT Inhaled Oxygen Concentration - - Weight 66.2 kg (146 lb) 05/25/2024 10:14 AM EDT Height 152.4 cm (5') 05/25/2024 10:14 AM EDT Body Mass Index 28.51 05/25/2024 10:14 AM EDT Plan of Treatment Health Maintenance Due Date Last Done Comments Hepatitis C Screening 1960 COVID-19 Vaccine (#1) 1960 Depression Screening 1974 BMI Counseling 02/25/1980 Preventative Health Evaluation 02/25/1980 DTap / Tdap / Td (1 - Tdap) 1981 Cervical Cancer Screening (P ap Smear) 1983 Colon Cancer Screening (Colonoscopy) 2007 Breast Cancer Screening (Mammogram) 02/25/2012 Shingrix-Zoster Vaccine (1 of 2) 02/25/2012 Influenza Vaccine (#1) 2024 RSV Adult > 60+ Yrs or Pregn ant (1 - 1-dose 75+ series) 2037 Hepatitis B Vaccines Aged Out No long er eligible based on patient's age to complete this topic Pneumococcal Vaccine Aged Out No long er eligible based on patient's age to complete this topic RSV Ped < 20 months Aged Out No longe r eligible based on patient's age to complete this topic Care Teams Goodwill Representative Relationship Specialty Start Date End Date Michel Khan MD [facility] [place] [address] PCP - General Family Medicine 09/16/22
== END 2025-01-25 09:10 | disposition home or self-care (01) ==
LOC: HO.HMCFM 08:22
PROVIDERS: PCP Family Medicine; Visit Provider Family Medicine
DX: M79.89 Other specified soft tissue disorders (principal); M79.18 Myalgia, other site; R53.1 Weakness; G35 Multiple sclerosis

== ENCOUNTER → 2025-01-25 08:22 | Outpatient (BNVA) | payer OTHER, SELFPAY | PROVIDERS: PCP Family Medicine; Visit Provider Family Medicine | DX: R60.0 Localized edema (principal); M79.18 Myalgia, other site; R53.1 Weakness; G35 Multiple sclerosis | CPT/HCPCS: 99212 ==

== ENCOUNTER 2025-01-25 09:31 | Outpatient (REF) | payer OTHER, SELFPAY ==
--- OUTSIDE RECORDS SUMMARY | 2025-01-25 10:43 | XMS_ITS | Clinical Summary ---
Author Organization 175 [facility] Address [address] [place] [address] Phone Care Team Providers Care Heel Cover Softener Name Role Phone Michel Khan MD Primary Care Provider [phone] Allergies Active Allergy Reactions Criticality Noted Date [...] Type Department Care Team Description 01/05/[address] [facility] [place] Outpatient Rehabilititation - [address] [phone] Meghan Low MD OCREVUS AUTH RQST; AUTH NOT REQRD 12/24/2024 9:30 AM EST Office Visit [address] [phone] Theresa Kendrick PA Multiple sclerosis ([facility]) (Primary Dx); Trigeminal neuralgia 12/03/2024 2:33 PM EST - 12/03/2024 11:59 PM EST Hospital Encounter [facility] MRI [address] [place] [phone] MS (multiple sclerosis) ([facility]) Discharge Disposition: Home or Self Care 12/03/2024 2:22 PM EST - 12/03/2024 11:59 PM EST Hospital Encounter [facility] MRI [address] [place] [address] MS (multiple sclerosis) ([facility]) Discharge Disposition: Home or Self Care 11/12/2024 12:30 PM EST Office Visit [address] [phone] Meghan Low MD Multiple sclerosis ([facility]) (Primary Dx); High risk medication use; Trigeminal neuralgia; Gait abnormality from Last 3 Months Medical History Medical History Date Comments MS (multiple sclerosis) ([facility]) DX:MS (multiple sclerosis) ([facility]) Social History Tobacco Use Types [...] Info) Description 02/17/2025 8:00 AM EDT Appointment [facility] [place] Outpatient Rehabilititation [address] [address] Health Maintenance Due Date Last [...] and culture (12/24/2024 10:59 AM EST) Specific [place] Urine 1.018 1.003 - 1.030 LAB URINALYSIS - AUTOMATED METHOD 12/24/2024 2:23 PM [facility] pH, Urine 6.5 5.0 - 8.0 pH LAB URINALYSIS - AUTOMATED METHOD 12/24/2024 2:23 PM [facility] Leukocytes, Urine Trace(A) Negative LAB URINALYSIS - AUTOMATED METHOD 12/24/2024 2:23 PM [facility] Nitrite, Urine Negative Negative LAB URINALYSIS - AUTOMATED METHOD 12/24/2024 2:23 PM [facility] Protein, Urine Negative <=Trace mg/dL LAB URINALYSIS - AUTOMATED METHOD 12/24/2024 2:23 PM [facility] Glucose, Urine Negative Negative mg/dL LAB URINALYSIS - AUTOMATED METHOD 12/24/2024 2:23 PM [facility] Ketones, Urine Negative Negative mg/dL LAB URINALYSIS - AUTOMATED METHOD 12/24/2024 2:23 PM [facility] Urobilinogen, Urine 0.2 0.2 - 1.0 mg/dL LAB URINALYSIS - AUTOMATED METHOD 12/24/2024 2:23 PM [facility] Bilirubin, Urine Negative Negative LAB URINALYSIS - AUTOMATED METHOD 12/24/2024 2:23 PM [facility] Blood, Urine Negative Negative LAB URINALYSIS - AUTOMATED METHOD 12/24/2024 2:23 PM [facility] RBC, Urine 2 0 - 4 /HPF LAB URINALYSIS - AUTOMATED METHOD 12/24/2024 2:23 PM [facility] WBC, Urine 6.4(H) 0 - 4 /HPF LAB URINALYSIS - AUTOMATED METHOD 12/24/2024 2:23 PM [facility] Squamous Epithelial, Urine 25 0 - 60 /LPF LAB URINALYSIS - AUTOMATED METHOD 12/24/2024 2:23 PM [facility] Bacteria, Urine Negative Negative /HPF LAB URINALYSIS - AUTOMATED METHOD 12/24/2024 2:23 PM [facility] Hyaline Casts, Urine 0.0 0 - 3 /LPF LAB URINALYSIS - AUTOMATED METHOD 12/24/2024 2:23 PM [facility] Urine Urine specimen obtained by clean catch procedure / Unknown Non-blood Collection / Unknown 12/24/2024 10:59 AM EST 12/24/2024 10:59 AM EST [facility] URINE ORDERABLES Final R esult Performing Organization Address [facility]/ZIP Co de Phone Number [facility] [address] [place] [address], [place] [phone] * Lozada urine culture tube (12/24/2024 10:59 AM EST) Extra Tube Hold for add-ons. 12/24/2024 4:01 PM [facility] Comment:Auto resulted. Urine Urine specimen obtained by clean catch procedure / Unknown Non-blood Collection / Unknown 12/24/2024 10:59 AM EST 12/24/2024 10:59 AM EST [facility] LAB URINE ORDERABLES Final R esult Performing Organization Address City/[facility]/ZIP Co de Phone Number [facility] [address] [place] [address], [place] [phone] * Culture urine (12/24/2024 10:59 AM EST) Culture, Urine >100,000 CFU/mL Mixed urogenital jayant, no uropathogens present. Suggest repeat specimen if clinically indicated. 12/26/2024 10:11 AM [facility] Urine Urine specimen obtained by clean catch procedure / Unknown Non-blood Collection / Unknown 12/24/2024 10:59 AM EST 12/24/2024 2:23 PM EST Theresa SWEENEY LAB MICROBIOLOGY - GENERAL O RDERABLES Final Result Performing Organization Address [facility]/ZIP Co de Phone Number [facility] [address] [place] [address], [place] [phone] * (ABNORMAL) Carbamazepine level, total (12/24/2024 9:37 AM EST) Carbamazepine Level 5.4(L) 8.0 - 12.0 mcg/mL LAB CHEMISTRY METHOD 12/24/2024 2:36 PM EST [facility] Blood Venous blood specimen / Unknown Venipuncture / Unknown 12/24/2024 9:37 AM EST 12/24/2024 9:37 AM EST Theresasheeba Kendrick PA LAB BLOOD ORDERABLES Final R esult Performing Organization Address [facility] Co de Phone Number [facility] [address] [place] [address], [place] [phone] * MR Cervical Spine wo and w [...] Signed Date: 12/06/2024 17:59 ET Workstation ID: [id number] Transcribed By: Self Edit Transcribed Date: 12/06/2024 [...] Signed Date: 12/06/2024 17:59 ET Workstation ID: [id number] Transcribed By: Self Edit Transcribed Date: 12/06/2024 [...] Signed Date: 12/06/2024 18:08 ET Workstation ID: [id number] Transcribed By: Self Edit Transcribed Date: 12/06/2024 [...] hypointense on the T1-weighted spin-echo sequence; the C1hdsutn burden is unchanged. There is stable diffuse [...] Signed Date: 12/06/2024 18:08 ET Workstation ID: [id number] Transcribed By: Self Edit Transcribed Date: 12/06/2024 16:55 ET Theresa SWEENEY IMMonique MRI PROCEDURES Final Res ult from Last 3 Months Insurance * Guarantor: Ema Lilly Account Type Relation to Patient Date of Phone Billing Address Personal/Family Self [address] [place] [address] [facility] Care Teams Heel Cover Softener Relationship Specialty Start Date End Date Michel Khan MD [address] [place] [address] Dr Dom [place] PCP - General Family Medicine 09/16/22
--- OUTSIDE RECORDS SUMMARY | 2025-01-25 10:44 | XMS_ITS | Clinical Summary ---
Author Organization [facility] Address [address] [place] [address] Care Team Providers Care Collections Specialist Name Role Phone Michel Khan MD Primary [...] daily. 0 Active ergocalciferol (VITAMIN D2) capsule 66454 units Take 1 capsule (50,000 Units total) [...] age to complete this topic Care Teams Collections Specialist Relationship Specialty Start Date End Date Michel Khan MD [facility] [place] [address] PCP - General Family Medicine 09/16/22
--- OUTSIDE RECORDS SUMMARY | 2025-01-25 10:44 | XMS_ITS | Encounter Summary ---
Author Organization [facility] Address [address] [place] [address] Care Team Providers Care Photoengraving Machine Operator/Tender Name Role Phone Michel Khan MD Primary Care Provider Reason for Visit * Reason Onset Date Comments OCREVUS AUTH RQST 01/05/2025 AUTH NOT REQRD 01/05/2025 Encounter Details Date Type Department Care Team (Late st Contact Info) Description 01/05/2025 Telephone [facility] [place] Outpatient Rehabilititation - [place] [address] [phone] Meghan Low MD 175 [facility] [address] [place] [phone] OCREVUS AUTH RQST; AUTH NOT REQRD Social [...] EST Ocrevus auth rqst forms faxed to [facility]- pending. documented in this encounter Plan of Treatment Upcoming Encounters Date Type Department Care Team (Late st Contact Info) Description 02/17/2025 8:00 AM EDT Appointment [facility] [place] Outpatient Rehabilititation - [address] [phone] documented as of this encounter Visit Diagnoses Not on filedocumented in this encounter Care Teams Photoengraving Machine Operator/Tender Relationship Specialty Start Date End Date Michel Khan MD [address] [place] [address] Dr Hernandez [facility] [place], [place] PCP - General Family Medicine 09/16/22 documented as of this encounter
--- OUTSIDE RECORDS SUMMARY | 2025-01-25 10:44 | XMS_ITS | Encounter Summary ---
Author Organization [facility] Address [address] [place] [address] Care Team Providers Care Osteologist Name Role Phone Michel Khan MD Primary [...] 8:00 AM EDT Appointment [facility] Outpatient Rehabilititation - [place] 175 [facility] [address] [place] [address] documented as of this encounter Visit Diagnoses Not on filedocumented in this encounter Care Teams Osteologist Relationship Specialty Start Date End Date Michel Khan MD [address] [place] [address] Dr Hernandez [address] [place], [place] PCP - General Family Medicine 09/16/22 documented as of this encounter
--- OUTSIDE RECORDS SUMMARY | 2025-01-25 10:44 | XMS_ITS | Encounter Summary ---
Author Organization [facility] Address [address] [place] [address] Care Team Providers Care Metallurgical Or Materials Technician Name Role Phone Michel Khan MD Primary Care Provider Encounter Details Date Type Department Care Team (Late st Contact Info) Description 08/18/2024 7:55 AM EDT Hospital Encounter [facility] Meghan Low MD [address] [facility] [address] [place] [address] Social History Tobacco Use Types [...] Low MD - 08/18/2024 8:00 AM EDT [facility] CC: [place] HPI: [...] , Rfl: ??? ergocalciferol (VITAMIN D2) capsule 08840 units, Take 1 capsule (50,000 Units total) [...] also discussed other resources like going to [facility] A. Disease modifying therapy plan: -Continue Ocrevus per [facility] protocol -Screening labs as per protocol [...] 40 minutes. The majority of the actual jbar-jc-sfzl visit was spent counseling the patient with respect to the current neurological picture. Meghan Low MD documented in this encounter Plan of Treatment Upcoming Encounters Date Type Department Care Team (Late st Contact Info) Description 02/17/2025 8:00 AM EDT Appointment [facility] [place] Outpatient Rehabilititation - [place] 175 [facility] [address] [place] [address] documented as of this encounter Visit Diagnoses Not on filedocumented in this encounter Care Teams Metallurgical Or Materials Technician Relationship Specialty Start Date End Date Michel Khan MD [address] [place] [address] [address] [place], [place] PCP - General Family Medicine 09/16/22 documented as of this encounter
[2025-01-25 11:44] LABS: MANUAL DIFF FLAG NO
[2025-01-25 11:45] LABS: Basophils Absolute Auto 0.1 X10*3/uL (0.0-0.2); Basophils Percent Auto 0.9 % (0-2); Eosinophils Absolute Auto 0.1 X10*3/uL (0.0-0.4); Eosinophils Percent Auto 0.8 % (0-4); Hematocrit 38.6 % (37.0-47.0); Hemoglobin 12.5 g/dl (12.0-16.0); Imm Gran Abs Auto 0.01 X10*3/uL (0.00-0.03); Imm Gran Pct Auto 0.2 % (0.0-0.4); Lymphocytes Percent Auto 14.6 % (20-40); Mean Corpuscular HGB Conc 32.4 g/dl (31.0-35.0); Mean Corpuscular Hemoglobin 28.9 pg (27.0-33.0); Mean Corpuscular Volume 89.4 fL (80.0-98.0); Mean Platelet Volume 11.7 fL (9.4-12.3); Monocytes Absolute Auto 0.5 X10*3/uL (0.1-1.2); Neutrophils Absolute Auto 4.9 x10*3/uL (2.0-8.3); Neutrophils Percent Auto 75.5 % (45-73); Platelet Count 209 X10*3/uL (160-400); Red Blood Count 4.32 X10*6/uL (4.20-5.50); Red Cell Distribution Width 13.2 % (11.0-16.0); White Blood Count 6.5 X10*3/uL (4.8-10.8)
[2025-01-25 12:33] LABS: Alanine Aminotransferase 16 U/L (0-31); Albumin Level 4.2 g/dL (3.5-5.0); Alkaline Phosphatase 55 U/L (39-117); Anion Gap 10 (12-20); Aspartate Amino Transferase 18 U/L (5-31); Bilirubin Total 0.2 mg/dL (0.0-1.0); Blood Urea Nitrogen 19 mg/dL (9-16); Calcium 8.9 mg/dL (8.4-10.2); Carbon Dioxide 28 mmol/L (22-29); Chloride 109 mmol/L (96-108); Cholesterol 286 mg/dL (<200); Estimated Glomerular Filt Rate > 60; Glucose Fasting 88 mg/dL (60-99); HDL Cholesterol 54 mg/dL (>40); LDL Cholesterol Calculated 201 mg/dL (<100); Potassium 4.4 mmol/L (3.3-5.1); Sodium 143 mmol/L (135-145); TSH reflex Free T4 1.72 uIU/mL (0.32-4.0); Total Protein 7.3 g/dL (6.5-8.0); Triglycerides 156 mg/dL (<150)
== END 2025-01-25 09:32 | disposition home or self-care (01) ==
LOC: HO.WFDLDS 09:31
PROVIDERS: Visit Provider Family Medicine
DX: Z00.00 Encounter for general adult medical examination without abnormal findings (principal)
CPT/HCPCS: 36415; 80053; 80061; 84443; 85025

== ENCOUNTER 2025-02-22 10:22 | Outpatient (REF) | payer OTHER, SELFPAY ==
--- OUTSIDE RECORDS SUMMARY | 2025-02-22 13:37 | XMS_ITS | Clinical Summary ---
Author Organization 175 [facility] Address [address] [place] [address] Phone Care Team Providers Care Building Maintenance Mechanic Name Role Phone Michel Khan MD Primary [...] Description 02/17/2025 9:00 AM EDT Office Visit [address] [phone] Theresa Kendrick PA Multiple sclerosis (CMS/HCC) (Primary Dx) 02/17/2025 8:00 AM EDT - 02/17/2025 11:59 PM EDT Hospital Encounter [facility] [place] Outpatient Rehabilititation [address] [phone] Multiple sclerosis (CMS/HCC) (Primary Dx); Vitamin D deficiency Discharge Disposition: Home or Self Care 01/05/2025 Telephone [facility] [place] Outpatient Rehabilititation [address] [address] Meghan Low MD OCREVUS AUTH RQST; AUTH NOT REQRD 12/24/2024 9:30 AM EST Office Visit [address] [phone] Theresa Kendrick PA Multiple sclerosis (CMS/HCC) (Primary Dx); Trigeminal neuralgia 12/03/2024 2:33 PM EST - 12/03/2024 11:59 PM EST Hospital Encounter [facility] MRI [address] [place] [phone] MS (multiple sclerosis) ([facility]) Discharge Disposition: Home or Self Care 12/03/2024 2:22 PM EST - 12/03/2024 11:59 PM EST Hospital Encounter [facility] MRI [address] [place] [phone] MS (multiple sclerosis) (CMS/HCC) Discharge Disposition: Home or Self Care from Last 3 Months Medical History Medical History Date Comments MS (multiple sclerosis) (CMS/HCC) DX:MS (multiple sclerosis) ([facility]) Social History Tobacco Use Types Packs/Day Years [...] Info) Description 08/17/2025 8:00 AM EDT Appointment [facility] [place] [facility] [place] [address] [phone] 08/17/2025 8:00 AM EDT Office Visit [facility] [place] [facility] [place] 175 [facility] [address] [place] [address] Meghan Low MD 175 [facility] [address] [place] [address] Health Maintenance Due Date Last [...] CBC auto differential (02/17/2025 8:40 AM EDT) [facility] Signature WBC 7.0 4.8 - 10.8 K/mcL LAB HEMETOLOGY METHOD 02/17/2025 9:40 AM [facility] RBC 4.40 3.80 - 4.80 M/mcL LAB HEMETOLOGY METHOD 02/17/2025 9:[address] [facility] Hemoglobin 12.9 11.5 - 16.0 g/dL LAB HEMETOLOGY METHOD 02/17/2025 9:40 AM [facility] Hematocrit 39.8 35.0 - 47.0 % LAB HEMETOLOGY METHOD 02/17/2025 9:40 AM [facility] MCV 89.6 79.0 - 98.0 FL LAB HEMETOLOGY METHOD 02/17/2025 9:40 AM [facility] MCH 29.1 27.0 - 32.0 pcg LAB HEMETOLOGY METHOD 02/17/2025 9:40 AM [facility] MCHC 32.4 32.0 - 37.0 g/dL LAB HEMETOLOGY METHOD 02/17/2025 9:40 AM [facility] RDW 12.9 11.0 - 15.0 % LAB HEMETOLOGY METHOD 02/17/2025 9:40 AM [facility] Platelets 231 130 - 400 K/mcL LAB HEMETOLOGY METHOD 02/17/2025 9:40 AM [facility] MPV 11.6(H) 7.0 - 11.0 FL LAB HEMETOLOGY METHOD 02/17/2025 9:40 AM [facility] NRBC 0.0 <1.0 % LAB HEMETOLOGY METHOD 02/17/2025 9:40 AM [facility] NRBC Absolute 0.00 <0.10 K/mcL LAB HEMETOLOGY METHOD 02/17/2025 9:40 AM [facility] Neutrophils Relative 73.3 % LAB HEMETOLOGY METHOD 02/17/2025 9:40 AM [facility] Lymphocytes Relative 16.0 % LAB HEMETOLOGY METHOD 02/17/2025 9:40 AM [facility] Monocytes Relative 8.3 % LAB HEMETOLOGY METHOD 02/17/2025 9:40 AM [facility] Eosinophils Relative 0.9 % LAB HEMETOLOGY METHOD 02/17/2025 9:40 AM [facility] Basophils Relative 1.2 % LAB HEMETOLOGY METHOD 02/17/2025 9:40 AM [facility] Immature Granulocytes Relative 0.3 % LAB HEMETOLOGY METHOD 02/17/2025 9:40 AM [facility] Neutrophils Absolute 5.10 1.50 - 7.00 K/mcL LAB HEMETOLOGY METHOD 02/17/2025 9:40 AM [facility] Lymphocytes Absolute 1.11 1.00 - 5.00 K/mcL LAB HEMETOLOGY METHOD 02/17/2025 9:40 AM [facility] Monocytes Absolute 0.58 0.20 - 1.00 K/mcL LAB HEMETOLOGY METHOD 02/17/2025 9:40 AM [facility] Eosinophils Absolute 0.06 0.00 - 0.50 K/mcL LAB HEMETOLOGY METHOD 02/17/2025 9:40 AM [facility] Basophils Absolute 0.08 0.00 - 0.20 K/mcL LAB HEMETOLOGY METHOD 02/17/2025 9:40 AM [facility] Immature Granulocytes Absolute 0.02 0.00 - 0.03 K/mcL LAB HEMETOLOGY METHOD 02/17/2025 9:[address] [facility] Blood Venous blood specimen / Unknown Venipuncture / Unknown 02/17/2025 8:40 AM EDT 02/17/2025 8:40 AM EDT [facility] BLOOD ORDERABLES Final R esult Performing Organization Address City/[facility] Co de Phone Number [facility] [address] [place] [address], * Creatinine (02/17/2025 8:40 AM EDT) Pathologist [facility] Creatinine 0.56 0.50 - 1.10 mg/dL LAB CHEMISTRY METHOD 02/17/2025 10:[address] [facility] eGFR 103 >=60 mL/min/1. 73m2 LAB CHEMISTRY METHOD 02/17/2025 10:[address] [facility] Comment:Calculation based on the??Chronic Kidney Disease Epidemiology Collaboration (CKD-EPI) equation refit??without adjustment for race. Blood Venous blood specimen / Unknown Venipuncture / Unknown 02/17/2025 8:40 AM EDT 02/17/2025 8:40 AM EDT Theresa SWEENEY LAB BLOOD ORDERABLES Final R esult Performing Organization Address City/[facility] Co de Phone Number [facility] [address] [place] [address], * (ABNORMAL) Vitamin D 25 hydroxy (02/17/2025 8:40 AM EDT) Pathologist [facility] Vit D, 25-Hydroxy 14.0(L) 30.0 - 80.0 ng/mL LAB CHEMISTRY METHOD 02/17/2025 11:[address] [facility] Blood Venous blood specimen / Unknown Venipuncture / Unknown 02/17/2025 8:40 AM EDT 02/17/2025 8:40 AM EDT Theresa SWEENEY LAB BLOOD ORDERABLES Final R esult Performing Organization Address City/[facility]/ZIP Co de Phone Number [facility] [address] [place] [address], [place] [phone] * BUN (02/17/2025 8:40 AM EDT) [facility] BUN 18 5 - 25 mg/dL LAB CHEMISTRY METHOD 02/17/2025 10:[address] [facility] Blood Venous blood specimen / Unknown Venipuncture / Unknown 02/17/2025 8:40 AM EDT 02/17/2025 8:40 AM EDT Theresa SWEENEY LAB BLOOD ORDERABLES Final R esult Performing Organization Address City/[facility]/ZIP Co de Phone Number [facility] [address] [place] [address], [place] [phone] * Vitamin B12 (02/17/2025 8:40 AM EDT) [facility] Vitamin B-12 564 250 - 900 pcg/mL LAB CHEMISTRY METHOD 02/17/2025 10:[address] [facility] Blood Venous blood specimen / Unknown Venipuncture / Unknown 02/17/2025 8:40 AM EDT 02/17/2025 8:40 AM EDT Theresasheeba SWEENEY LAB BLOOD ORDERABLES Final R esult [facility] [address] [place] [address], [place] [phone] * Hepatic function panel (02/17/2025 8:40 AM EDT) [facility] Total Protein 7.5 6.0 - 8.0 g/dL LAB CHEMISTRY METHOD 02/17/2025 10:18 AM [facility] Albumin 4.0 3.2 - 5.0 g/dL LAB CHEMISTRY METHOD 02/17/2025 10:18 AM [facility] Total Bilirubin 0.3 0.0 - 1.4 mg/dL LAB CHEMISTRY METHOD 02/17/2025 10:18 AM [facility] Bilirubin, Direct <0.1 0.0 - 0.3 mg/dL LAB CHEMISTRY METHOD 02/17/2025 10:18 AM [facility] Bilirubin, Indirect LAB CHEMISTRY METHOD 02/17/2025 10:18 AM [facility] Comment:Unable to calculate Indirect Bilirubin. ALT (SGPT) 19 10 - 60 unit/L LAB CHEMISTRY METHOD 02/17/2025 10:18 AM [facility] AST (SGOT) 18 10 - 42 unit/L LAB CHEMISTRY METHOD 02/17/2025 10:18 AM [facility] Alkaline Phosphatase 69 42 - 121 unit/L LAB CHEMISTRY METHOD 02/17/2025 10:18 AM [facility] Blood Venous blood specimen / Unknown Venipuncture / Unknown 02/17/2025 8:40 AM EDT 02/17/2025 8:40 AM EDT Theresa SWEENEY LAB BLOOD ORDERABLES Final R esult [facility] [address] [place] [address], * (ABNORMAL) Urinalysis with reflex microscopic and culture (12/24/2024 10:59 AM EST) [facility] Specific [place] Urine 1.018 1.003 - 1.030 LAB URINALYSIS - AUTOMATED METHOD 12/24/2024 2:23 PM [facility] pH, Urine 6.5 5.0 - 8.0 pH LAB URINALYSIS - AUTOMATED METHOD 12/24/2024 2:23 PM [facility] Leukocytes, Urine Trace(A) Negative LAB URINALYSIS - AUTOMATED METHOD 12/24/2024 2:23 PM [facility] Nitrite, Urine Negative Negative LAB URINALYSIS - AUTOMATED METHOD 12/24/2024 2:23 PM [facility] Protein, Urine Negative <=Trace mg/dL LAB URINALYSIS - AUTOMATED METHOD 12/24/2024 2:23 PM [facility] Glucose, Urine Negative Negative mg/dL LAB URINALYSIS - AUTOMATED METHOD 12/24/2024 2:23 PM [facility] Ketones, Urine Negative Negative mg/dL LAB URINALYSIS - AUTOMATED METHOD 12/24/2024 2:23 PM [facility] Urobilinogen, Urine 0.2 0.2 - 1.0 mg/dL LAB URINALYSIS - AUTOMATED METHOD 12/24/2024 2:23 PM [facility] Bilirubin, Urine Negative Negative LAB URINALYSIS - AUTOMATED METHOD 12/24/2024 2:23 PM [facility] Blood, Urine Negative Negative LAB URINALYSIS - AUTOMATED METHOD 12/24/2024 2:23 PM [facility] RBC, Urine 2 0 - 4 /HPF LAB URINALYSIS - AUTOMATED METHOD 12/24/2024 2:23 PM [facility] WBC, Urine 6.4(H) 0 - 4 /HPF LAB URINALYSIS - AUTOMATED METHOD 12/24/2024 2:23 PM [facility] Squamous Epithelial, Urine 25 0 - 60 /LPF LAB URINALYSIS - AUTOMATED METHOD 12/24/2024 2:23 PM [facility] Bacteria, Urine Negative Negative /HPF LAB URINALYSIS - AUTOMATED METHOD 12/24/2024 2:23 PM [facility] Hyaline Casts, Urine 0.0 0 - 3 /LPF LAB URINALYSIS - AUTOMATED METHOD 12/24/2024 2:23 PM [facility] Urine Urine specimen obtained by clean catch procedure / Unknown Non-blood Collection / Unknown 12/24/2024 10:59 AM EST 12/24/2024 10:59 AM EST [facility] URINE ORDERABLES Final R esult Performing Organization Address City/[facility]/ZIP Co de Phone Number [facility] [address] [place] [address], [place] [phone] * Lozada urine culture tube (12/24/2024 10:59 AM EST) Extra Tube Hold for add-ons. 12/24/2024 4:01 PM [facility] Comment:Auto resulted. Urine Urine specimen obtained by clean catch procedure / Unknown Non-blood Collection / Unknown 12/24/2024 10:59 AM EST 12/24/2024 10:59 AM EST [facility] [place] LAB URINE ORDERABLES Final R esult Performing Organization Address City/[facility]/ZIP Co de Phone Number [facility] [address] [place] [address], [place] [phone] * Culture urine (12/24/2024 10:59 AM EST) Culture, Urine >100,000 CFU/mL Mixed urogenital jayant, no uropathogens present. Suggest repeat specimen if clinically indicated. 12/26/2024 10:11 AM [facility] Urine Urine specimen obtained by clean catch procedure / Unknown Non-blood Collection / Unknown 12/24/2024 10:59 AM EST 12/24/2024 2:23 PM EST Theresa SWEENEY LAB MICROBIOLOGY - GENERAL O RDERABLES Final Result Performing Organization Address [facility]/ZIP Co de Phone Number [facility] [address] [place] [address], [place] [phone] * (ABNORMAL) Carbamazepine level, total (12/24/2024 9:37 AM EST) Carbamazepine Level 5.4(L) 8.0 - 12.0 mcg/mL LAB CHEMISTRY METHOD 12/24/2024 2:[address] [facility] Blood Venous blood specimen / Unknown Venipuncture / Unknown 12/24/2024 9:37 AM EST 12/24/2024 9:37 AM EST Theresa SWEENEY LAB BLOOD ORDERABLES Final R esult Performing Organization Address [facility] Co de Phone Number [facility] [address] [place] [address], [place] [phone] * MR Cervical Spine wo and w [...] Signed Date: 12/06/2024 17:59 ET Workstation ID: [id number] Transcribed By: Self Edit Transcribed Date: 12/06/2024 [...] Signed Date: 12/06/2024 17:59 ET Workstation ID: [id number] Transcribed By: Self Edit Transcribed Date: 12/06/2024 [...] Signed Date: 12/06/2024 18:08 ET Workstation ID: [id number] Transcribed By: Self Edit Transcribed Date: 12/06/2024 [...] hypointense on the T1-weighted spin-echo sequence; the P2bflyle burden is unchanged. There is stable diffuse [...] Signed Date: 12/06/2024 18:08 ET Workstation ID: [id number] Transcribed By: Self Edit Transcribed Date: 12/06/2024 16:55 ET Theresa SWEENEY IMG MRI PROCEDURES Final Res ult from Last 3 Months Insurance * Guarantor: Ema Lilly Account Type Relation to Patient Date of Phone Billing Address Personal/Family Self [address] [place] [address] [facility] Care Teams Building Maintenance Mechanic Relationship Specialty Start Date End Date Michel Khan MD [address] [place] [address] Dr [place] PCP - General Family Medicine 09/16/22
--- OUTSIDE RECORDS SUMMARY | 2025-02-22 13:37 | XMS_ITS | Clinical Summary ---
Author Organization [facility] Address [address] [place] [address] Care Team Providers Care Auto Body Straightener Name Role Phone Michel Khan MD Primary [...] daily. 0 Active ergocalciferol (VITAMIN D2) capsule 25208 units Take 1 capsule (50,000 Units total) [...] age to complete this topic Care Teams Auto Body Straightener Relationship Specialty Start Date End Date Michel Khan MD [facility] [place] [address] PCP - General Family Medicine 09/16/22
--- OUTSIDE RECORDS SUMMARY | 2025-02-22 13:38 | XMS_ITS | Encounter Summary ---
Author Organization [facility] Address [address] [place] [address] Care Team Providers Care Tetryl Screen Operator Name Role Phone Michel Khan MD Primary Care Provider [phone] Reason for Referral * Consultation (Routine) - Closed Specialty Diagnoses / Procedures Referred By Soheila newton Referred To Contact Urology Diagnoses Multiple sclerosis (CMS/HCC) Theresa Kendrick PA 175 [facility] [address] [place] [address] Phone: tel: fax: Handy Elena MD [address] [address] Phone: tel: fax: Referral ID Status Reason Start Date Expiration Date V isits Requested Visits Authorized [id number] Closed Specialty Services Required 02/17/2025 02/17/2026 1 1 * Home Health (Routine) - Pending Review Specialty Diagnoses / Procedures Referred By Soheila newton Referred To Contact Home Health Services Diagnoses Multiple sclerosis (CMS/HCC) Theresa Kendrick PA 175 [facility] [address] [place] [address] Phone: tel: fax: Referral ID Status Reason Start Date Expiration Date Visits Requested Visits Authorized [id number] Pending Review Consult and Treat 02/17/2025 02/17/2026 1 1 * Consultation (Routine) - Pending Review Specialty Diagnoses / Procedures Referred By Soheila newton Referred To Contact Speech Pathology / Speech Therapy Diagnoses Multiple sclerosis (CMS/HCC) Theresa Kendrick PA [address] [address] Phone: tel: fax: Referral ID Status Reason Start Date Expiration Date Visits Requested Visits Authorized [id number] Pending Review Specialty Services Required 02/17/2025 02/17/2026 1 1 Encounter Details Date Type Department Care Team (Late st Contact Info) Description 02/17/2025 9:00 AM EDT Office Visit [facility] [address] [facility] [address] [address] Theresa Kendrick PA [address] [address] Multiple sclerosis (CMS/HCC) (Primary Dx) Social History [...] Info) Description 08/17/2025 8:00 AM EDT Appointment [facility] [place] Outpatient Rehabilititation [address] [phone] 08/17/2025 8:00 AM EDT Office Visit [address] [place] [phone] Meghan Low MD 175 [facility] [address] [place] [phone] Scheduled Referrals Name Type Priority Associated Diagnoses [...] sclerosis documented in this encounter Care Teams Tetryl Screen Operator Relationship Specialty Start Date End Date Michel Khan MD [address] [place] [address] Dr [address] [place] [address] [place] PCP - General Family Medicine 09/16/22 documented as of this encounter
--- OUTSIDE RECORDS SUMMARY | 2025-02-22 13:38 | XMS_ITS | Encounter Summary ---
Author Organization [facility] Address [address] [place] [address] Care Team Providers Care Heel Seam Rubber Name Role Phone Michel Khan MD Primary Care Provider Encounter Details Date Type Department Care Team (Late st Contact Info) Description 08/18/2024 7:55 AM EDT Hospital Encounter [facility] Meghan Low MD 175 [facility] [address] [place] [address] Social History Tobacco Use Types [...] Low MD - 08/18/2024 8:00 AM EDT [facility] CC: [place] HPI: Patient [...] , Rfl: ??? ergocalciferol (VITAMIN D2) capsule 51885 units, Take 1 capsule (50,000 Units total) [...] also discussed other resources like going [facility] A. Disease modifying therapy plan: -Continue Ocrevus per [facility] protocol -Screening labs as per protocol [...] 40 minutes. The majority of the actual iiva-co-aazf visit was spent counseling the patient with respect to the current neurological picture. Meghan Low MD documented in this encounter Plan of Treatment Upcoming Encounters Date Type Department Care Team (Late st Contact Info) Description 08/17/2025 8:00 AM EDT Appointment [facility] [place] Outpatient Rehabilititation - [place] 175 [facility] [address] [place] [phone] 08/17/2025 8:00 AM EDT Office Visit [facility] [place] - [place] 175 [facility] [address] [place] [phone] Meghan Low MD 175 [facility] [address] [place] [phone] documented as of this encounter Visit Diagnoses Not on filedocumented in this encounter Care Teams Heel Seam Rubber Relationship Specialty Start Date End Date Michel Khan MD [address] [place] [address] Dr Hernandez [facility] ELANA Vazquez PCP - General Family Medicine 09/16/22 documented as of this encounter
--- OUTSIDE RECORDS SUMMARY | 2025-02-22 13:38 | XMS_ITS | Encounter Summary ---
Author Organization [facility] Address [address] [place] [address] Care Team Providers Care Public Works Technician Name Role Phone Michel Khan MD Primary Care Provider [phone] Encounter Details Date Type Department Care Team [...] Info) Description 08/17/2025 8:00 AM EDT Appointment [facility] [place] 175 [facility] [address] [place] [address] 08/17/2025 8:00 AM EDT Office Visit [facility] [place] [facility] [place] [address] [place] [phone] Meghan Low MD 175 [facility] [address] [place] [phone] documented as of this encounter Visit Diagnoses Not on filedocumented in this encounter Care Teams Public Works Technician Relationship Specialty Start Date End Date Michel Khan MD [address] [place] [address] ELANA Vazquez PCP - General Family Medicine 09/16/22 documented as of this encounter
--- OUTSIDE RECORDS SUMMARY | 2025-02-22 13:38 | XMS_ITS | Encounter Summary ---
Author Organization [facility] Address [address] [place] [address] Care Team Providers Care Kiln Feeder Name Role Phone Michel Khan MD Primary Care Provider [phone] Reason for Visit * Episode Based Medications (Routine) - Authorized Specialty Diagnoses / Procedures Referred By Contac t Referred To Contact Infusion Therapy Diagnoses Multiple sclerosis (CMS/HCC V24, CMS/HCC V28) ocrevus 600 rapid, po benadryl Procedures INFUSION Theresa Kendrick PA 175 [facility] [address] [place] [address] Phone: tel: fax: [facility] 175 [facility] [address] [place] [address] Phone: tel: fax: Referral ID Status Reason Start Date Expiration Date V isits Requested Visits Authorized [id number] Authorized 02/17/2025 02/16/2026 2 2 Encounter Details Date Type Department Care Team (Latest Contact Info) Description 02/17/2025 8:00 AM EDT - 02/17/2025 11:59 PM EDT Hospital Encounter [facility] 175 [facility] [address] [place] [phone] Multiple sclerosis (CMS/HCC) (Primary Dx); Vitamin D [...] Info) Description 08/17/2025 8:00 AM EDT Appointment [facility] [address] [facility] [address] [facility] [address] [place] [address] 08/17/2025 8:00 AM EDT Office Visit [facility] [address] [facility] [address] [phone] Meghan Low MD [address] [facility] [address] [facility] [address] [place] [address] documented as of this encounter Procedures Procedure Name Priority Date/Time Associated Diagnosis Comments CBC WITH AUTO DIFFERENTIAL Routine 02/17/2025 8:40 AM EDT Multiple sclerosis ([facility]) CREATININE, SERUM Routine 02/17/2025 8:4 0 AM [...] CBC auto differential (02/17/2025 8:40 AM EDT) [facility] WBC 7.0 4.8 - 10.8 K/mcL LAB HEMETOLOGY METHOD 02/17/2025 9:40 AM [facility] RBC 4.40 3.80 - 4.80 M/mcL LAB HEMETOLOGY METHOD 02/17/2025 9:40 AM [facility] Hemoglobin 12.9 11.5 - 16.0 g/dL LAB HEMETOLOGY METHOD 02/17/2025 9:40 AM [facility] Hematocrit 39.8 35.0 - 47.0 % LAB HEMETOLOGY METHOD 02/17/2025 9:40 AM [facility] MCV 89.6 79.0 - 98.0 FL LAB HEMETOLOGY METHOD 02/17/2025 9:40 AM [facility] MCH 29.1 27.0 - 32.0 pcg LAB HEMETOLOGY METHOD 02/17/2025 9:40 AM [facility] MCHC 32.4 32.0 - 37.0 g/dL LAB HEMETOLOGY METHOD 02/17/2025 9:40 AM [facility] RDW 12.9 11.0 - 15.0 % LAB HEMETOLOGY METHOD 02/17/2025 9:40 AM [facility] Platelets 231 130 - 400 K/mcL LAB HEMETOLOGY METHOD 02/17/2025 9:40 AM [facility] MPV 11.6(H) 7.0 - 11.0 FL LAB HEMETOLOGY METHOD 02/17/2025 9:40 AM [facility] NRBC 0.0 <1.0 % LAB HEMETOLOGY METHOD 02/17/2025 9:40 AM [facility] NRBC Absolute 0.00 <0.10 K/mcL LAB HEMETOLOGY METHOD 02/17/2025 9:40 AM [facility] Neutrophils Relative 73.3 % LAB HEMETOLOGY METHOD 02/17/2025 9:40 AM [facility] Lymphocytes Relative 16.0 % LAB HEMETOLOGY METHOD 02/17/2025 9:40 AM [facility] Monocytes Relative 8.3 % LAB HEMETOLOGY METHOD 02/17/2025 9:40 AM [facility] Eosinophils Relative 0.9 % LAB HEMETOLOGY METHOD 02/17/2025 9:40 AM [facility] Basophils Relative 1.2 % LAB HEMETOLOGY METHOD 02/17/2025 9:40 AM [facility] Immature Granulocytes Relative 0.3 % LAB HEMETOLOGY METHOD 02/17/2025 9:40 AM [facility] Neutrophils Absolute 5.10 1.50 - 7.00 K/mcL LAB HEMETOLOGY METHOD 02/17/2025 9:40 AM [facility] Lymphocytes Absolute 1.11 1.00 - 5.00 K/mcL LAB HEMETOLOGY METHOD 02/17/2025 9:40 AM EDT [facility] Monocytes Absolute 0.58 0.20 - 1.00 K/[facility] LAB HEMETOLOGY METHOD 02/17/2025 9:40 AM EDT [facility] Eosinophils Absolute 0.06 0.00 - 0.50 K/[facility] LAB HEMETOLOGY METHOD 02/17/2025 9:40 AM EDT [facility] Basophils Absolute 0.08 0.00 - 0.20 K/[facility] LAB HEMETOLOGY METHOD 02/17/2025 9:40 AM EDT [facility] Immature Granulocytes Absolute 0.02 0.00 - 0.03 K/[facility] LAB HEMETOLOGY METHOD 02/17/2025 9:40 AM EDT [facility] Blood Venous blood specimen / Unknown Venipuncture / Unknown 02/17/2025 8:40 AM EDT 02/17/2025 8:40 AM EDT Theresa SWEENEY LAB BLOOD ORDERABLES Final R esult [facility] [address] [place] [address], * Hepatic function panel (02/17/2025 8:40 AM EDT) Total Protein 7.5 6.0 - 8.0 g/dL LAB CHEMISTRY METHOD 02/17/2025 10:18 AM EDT [facility] Albumin 4.0 3.2 - 5.0 g/dL LAB CHEMISTRY METHOD 02/17/2025 10:18 AM EDT [facility] Total Bilirubin 0.3 0.0 - 1.4 mg/dL LAB CHEMISTRY METHOD 02/17/2025 10:18 AM EDT [facility] Bilirubin, Direct <0.1 0.0 - 0.3 mg/dL LAB CHEMISTRY METHOD 02/17/2025 10:18 AM EDT [facility] Bilirubin, Indirect LAB CHEMISTRY METHOD 02/17/2025 10:18 AM EDT [facility] Comment:Unable to calculate Indirect Bilirubin. ALT (SGPT) 19 10 - 60 unit/L LAB CHEMISTRY METHOD 02/17/2025 10:18 AM EDT [facility] AST (SGOT) 18 10 - 42 unit/L LAB CHEMISTRY METHOD 02/17/2025 10:18 AM EDT [facility] Alkaline Phosphatase 69 42 - 121 unit/L LAB CHEMISTRY METHOD 02/17/2025 10:18 AM EDT [facility] Blood Venous blood specimen / Unknown Venipuncture / Unknown 02/17/2025 8:40 AM EDT 02/17/2025 8:40 AM EDT Theresa SWEENEY LAB BLOOD ORDERABLES Final R esult Performing Organization Address City/[facility]/ZIP Co de Phone Number [facility] [address] [place] [address], [place] [phone] * (ABNORMAL) Vitamin D 25 hydroxy (02/17/2025 8:40 AM EDT) Vit D, 25-Hydroxy 14.0(L) 30.0 - 80.0 ng/mL LAB CHEMISTRY METHOD 02/17/2025 11:16 AM EDT [facility] Blood Venous blood specimen / Unknown Venipuncture / Unknown 02/17/2025 8:40 AM EDT 02/17/2025 8:40 AM EDT Theresa SWEENEY LAB BLOOD ORDERABLES Final R esult Performing Organization Address City/[facility]/ZIP Co de Phone Number [facility] [address] [place] [address], [place] [phone] * Vitamin B12 (02/17/2025 8:40 AM EDT) Vitamin B-12 564 250 - 900 pcg/mL LAB CHEMISTRY METHOD 02/17/2025 10:43 AM EDT [facility] Blood Venous blood specimen / Unknown Venipuncture / Unknown 02/17/2025 8:40 AM EDT 02/17/2025 8:40 AM EDT [facility] LAB BLOOD ORDERABLES Final R esult [facility] [address] [place] [address], * Creatinine (02/17/2025 8:40 AM EDT) Creatinine 0.56 0.50 - 1.10 mg/dL LAB CHEMISTRY METHOD 02/17/2025 10:18 AM EDT [facility] eGFR 103 >=60 mL/min/1. 73m2 LAB CHEMISTRY METHOD 02/17/2025 10:18 AM EDT [facility] Comment:Calculation based on the??Chronic Kidney Disease Epidemiology Collaboration (CKD-EPI) equation refit??without adjustment for race. Blood Venous blood specimen / Unknown Venipuncture / Unknown 02/17/2025 8:40 AM EDT 02/17/2025 8:40 AM EDT [facility] [place] LAB BLOOD ORDERABLES Final R esult [facility] [address] [place] [address], [place] [phone] * BUN (02/17/2025 8:40 AM EDT) BUN 18 5 - 25 mg/dL LAB CHEMISTRY METHOD 02/17/2025 10:18 AM EDT [facility] Blood Venous blood specimen / Unknown Venipuncture / Unknown 02/17/2025 8:40 AM EDT 02/17/2025 8:40 AM EDT Theresa SWEENEY LAB BLOOD ORDERABLES Final R esult [facility] [address] [place] [address], documented in this encounter Visit Diagnoses Diagnosis [...] 02/17/2025 documented in this encounter Care Teams Kiln Feeder Relationship Specialty Start Date End Date Michel Khan MD [address] [place] [address] Dr Dom [place] PCP - General Family Medicine 09/16/22 documented as of this encounter
[2025-02-22 14:16] LABS: Appearance Urine Cloudy; Color Urine Yellow; Glucose Urine UA Negative (Negative); Leukocyte Esterase Urine Negative (Negative); Nitrite Urine Negative (Negative); PH 7.5 (5.0-9.0); Specific Gravity - Urine 1.025 (1.005-1.025); Urine Blood Negative (Negative); Urine Ketones Negative (Negative); Urine Protein Negative (Neg-Trace)
== END 2025-02-22 10:23 | disposition home or self-care (01) ==
LOC: HO.LAB 10:22
PROVIDERS: PCP Family Medicine; Visit Provider Family Medicine
DX: E78.5 Hyperlipidemia, unspecified (principal); Z00.00 Encounter for general adult medical examination without abnormal findings
CPT/HCPCS: 81003; 99212

== ENCOUNTER 2025-02-22 10:22 | Outpatient (AMB) | payer OTHER, SELFPAY ==
--- NOTE | 2025-02-22 10:23 | MHC.PC.OV ---
Vital Signs 02/22/25 10:32 Height 5 ft Weight 150 lb 6 oz BMI 29.4 BP 122/60 Blood Pressure Location Lt brachial Position Sitting Respiration 14 Pulse 64 Pulse Source Pulse Oximeter Temp 98.0 F Temp Source Oral Pulse Oximetry (%) 99 Oxygen Delivery Method Room Air Intake Visit Reasons: f/u labs Intake Note: patient is scheduled for follow up labs Fire Protection Specialist Required: No Allergies Sulfa (Sulfonamide Antibiotics) Allergy (Mild, Verified 02/22/25 10:35) Rash Penicillins Allergy (Verified 02/22/25 10:35) Rash Tobacco use date assessed: 06/19/22 HPI f/u labs HPI Details 64 y/o female presents to f/u labs. Labs drawn 01/25/25. Reviewed labs with pt. Triglycerides 156. TC 286. LDL 201. HDL 54. PFSH Medical History (Updated 02/22/25 @ 10:52 by Michel Khan MD) Multiple sclerosis Surgical History (Updated 10/24/23 @ 11:50 by Jacqueline Franklin) Hx of colonoscopy Social History Housing: Apartment Alcohol intake: never Patient Tobacco Use Status: Never used Tobacco e-Cigarette/Vaping Use: Never Used Second Hand Smoke Exposure: No service: No Current occupational status: disabled Current occupational exposures/hazards: No Cognitive needs: No Hearing needs: No Vision needs: No Questionnaire JORDAN-7 AMB Questionnaire JORDAN-7 Date JORDAN - 7 assessed: 06/19/22 Source: Developed by Drs. Meir Young, Tiff Mane, Chucky Navarro and colleagues, with an educational ayala from [email or web address]. Review of Systems Const Denies chills, Denies fatigue, Denies fever(s), Denies headache(s) and Denies weakness ENT Denies dizziness and Denies headache(s) Card Denies dyspnea Resp Denies cough, Denies dyspnea, Denies wheezing and Denies other (shortness of breath) Musc Denies numbness and Denies tingling Neuro Denies dizziness, Denies headache(s), Denies numbness, Denies tingling and Denies weakness Psych Denies anxiety and Denies depression Endo Denies fatigue Aller/Immun Denies wheezing Physical exam (Primary Care) Vital Signs: Last Vital Signs Temp 98.0 F 02/22/25 10:32 Pulse 64 02/22/25 10:32 Resp 14 02/22/25 10:32 BP 122/60 02/22/25 10:32 Pulse Ox 99 02/22/25 10:32 Oxygen Delivery Method Room Air 02/22/25 10:32 BMI result Body Mass Index 29.4 Tobacco/Smoking Status: Tobacco use Status Tobacco use date assessed 06/19/22 02/22/25 10:25 Patient Tobacco Use Status Never used Tobacco 02/22/25 10:25 e-Cigarette/Vaping Use Never Used 02/22/25 10:25 Const General: well developed; No acute distress Nutritional Appearance: well nourished Orientation/consciousness: patient oriented x3 HENMT Head: Yes normocephalic and Yes atraumatic Eyes General: appearance normal, both eyes and all related structures Pupils: Equal, round and reactive pupils present EOM: EOMs intact bilaterally Resp Effort & Inspection: normal respiratory effort Neuro General: patient oriented x3 and gait normal Cranial nerves: Yes Equal, round and reactive pupils present Psych Affect: normal affect Coding Level of Care Code Est Pt Level 3 (75214) Diagnoses Hyperlipidemia E78.5 Screening for osteoporosis Z13.820 Screening for breast cancer Z12.39 Assessment & Plan Assessment & Plan (1) Hyperlipidemia: Code(s): E78.5 - Hyperlipidemia, unspecified Category: Medical Plan: LDL?cholesterol?is?much?too?high. Start?rosuvastatin Will?recheck?in?a?few?months (2) Screening for osteoporosis: Code(s): Z13.820 - Encounter for screening for osteoporosis Category: Medical Plan: Bone?density?test?is?scheduled?April??at?noon (3) Screening for breast cancer: Code(s): Z12.39 - Encounter for other screening for malignant neoplasm of breast Category: Medical Plan: Mammogram?is?scheduled?on?April??around?noon Orders: Orders UA CC w/rflx Micro + Cult Today Z00.00 - Encounter for general adult medical examination without abnormal findings Comprehensive [place]. Panel Fast 2 Months E78.5 - Hyperlipidemia, unspecified, Z00.00 - Encounter for general adult medical examination without abnormal findings Lipid Panel 2 Months E78.5 - Hyperlipidemia, unspecified, Z00.00 - Encounter for general adult medical examination without abnormal findings T Spot TB Today Z11.1 - Encounter for screening for respiratory tuberculosis Medications: New rosuvastatin 40 mg PO DAILY 90 days 90 tabs 3RF
[2025-02-22 10:32] VITALS: BP 122/60; PULSE 64; RESP 14; TEMP 36.7; O2SAT 99; BMI 29.4
--- OUTSIDE RECORDS SUMMARY | 2025-02-22 12:18 | XMS_ITS | Encounter Summary ---
Author Organization [facility] Address [address] [place] [address] Care Team Providers Care In Service Educator Name Role Phone Michel Khan MD Primary Care Provider [phone] Reason for Referral * Consultation (Routine) - Closed Specialty Diagnoses / Procedures Referred By Soheila newton Referred To Contact Urology Diagnoses Multiple sclerosis (CMS/HCC) Theresa Kendrick PA [address] [facility] [address] [place] [address] Phone: tel: fax: Handy Elena MD [address] [address] Phone: tel: fax: Referral ID Status Reason Start Date Expiration Date V isits Requested Visits Authorized [id number] Closed Specialty Services Required 02/17/2025 02/17/2026 1 1 * Home Health (Routine) - Pending Review Specialty Diagnoses / Procedures Referred By Soheila newton Referred To Contact Home Health Services Diagnoses Multiple sclerosis (CMS/HCC) Theresa Kendrick PA [address] [facility] [address] [place] [address] Phone: tel: fax: Referral ID Status Reason Start Date Expiration Date Visits Requested Visits Authorized [id number] Pending Review Consult and Treat 02/17/2025 02/17/2026 1 1 * Consultation (Routine) - Pending Review Specialty Diagnoses / Procedures Referred By Soheila newton Referred To Contact Speech Pathology / Speech Therapy Diagnoses Multiple sclerosis (CMS/HCC) Theresa Kendrick PA [address] [address] Phone: tel: fax: Referral ID Status Reason Start Date Expiration Date Visits Requested Visits Authorized [id number] Pending Review Specialty Services Required 02/17/2025 02/17/2026 1 1 Encounter Details Date Type Department Care Team (Late st Contact Info) Description 02/17/2025 9:00 AM EDT Office Visit [facility] [address] [phone] Theresa Kendrick PA [address] [address] Multiple sclerosis (CMS/HCC) (Primary Dx) Social History Tobacco Use Types Packs/Day Years [...] on file documented as of this encounter Plan of Treatment Upcoming Encounters Date Type Department Care Team (Late st Contact Info) Description 08/17/2025 8:00 AM EDT Appointment [facility] [place] [facility] [address] [phone] 08/17/2025 8:00 AM EDT Office Visit [address] [place] [phone] Meghan Low MD 175 [facility] [address] [place] [phone] Scheduled Referrals Name Type Priority Associated Diagnoses Order Schedule Ambulatory referral to Speech Therapy Outpatient Referral Routine Multiple sclerosis (CMS/HCC) 1 Occurrences starting 02/17/2025 until 02/17/2026 Ambulatory referral to Home Health Outpatient Referral Routine Multiple sclerosis (CMS/HCC) 1 Occurrences starting 02/17/2025 until 02/17/2026 Ambulatory referral to Urology Outpatient Referral Routine Multiple sclerosis (CMS/HCC) 1 Occurrences starting 02/17/2025 until 02/17/2026 documented as of this encounter Visit Diagnoses Diagnosis Multiple sclerosis (CMS/HCC)- Primary Multiple sclerosis documented in this encounter Care Teams In Service Educator Relationship Specialty Start Date End Date Michel Khan MD [address] [place] [address] Dr [address] [place] [address] [place] PCP - General Family Medicine 09/16/22 documented as of this encounter
--- OUTSIDE RECORDS SUMMARY | 2025-02-22 12:18 | XMS_ITS | Encounter Summary ---
Author Organization [facility] Address [address] [place] [address] Care Team Providers Care Water Purifier Name Role Phone Michel Khan MD Primary [...] Info) Description 08/17/2025 8:00 AM EDT [facility]ment [facility] [place] 175 [facility] [address] [place] [phone] 08/17/2025 8:00 AM EDT Office Visit [facility] [place] [facility] [place] [address] [place] [phone] Meghan Low MD 175 [facility] [address] [place] [phone] documented as of this encounter Visit Diagnoses Not on filedocumented in this encounter Care Teams Water Purifier Relationship Specialty Start Date End Date Michel Khan MD [address] [place] [address] ELANA Vazquez PCP - General Family Medicine 09/16/22 documented as of this encounter
--- OUTSIDE RECORDS SUMMARY | 2025-02-22 12:18 | XMS_ITS | Clinical Summary ---
Author Organization 175 [facility] Address [address] [place] [address] Phone Care Team Providers Care Tractor Technician Name Role Phone Michel Khan MD [...] Units total) by mouth once a week. 3 Active cyanocobalamin (VITAMIN B-12) 100 mcg tablet Take 0.5 tablets (50 mcg total) by mouth daily. Active escitalopram (Lexapro) 10 mg tablet Take 1 tablet (10 mg total) by mouth 1 (one) time each day. 30 each 5 4 Active gabapentin (NEURONTIN) 400 mg capsule Take 1 capsule (400 mg total) by mouth 3 (three) times a day for 5 days, THEN 1 capsule (400 mg total) 2 (two) times a day for 7 days, THEN 1 capsule (400 mg total) at bedtime. 90 capsule 3 4 Active carBAMazepine XR (TEGretol XR) 100 mg 12 hr tablet Take 1 tablet (100 mg total) by mouth at bedtime for 5 days, THEN 1 tablet (100 mg total) 2 (two) times a day for 7 days, THEN 2 tablets (200 mg total) 2 (two) times a day. Do not crush, chew, or split.. 259 tablet 5 04/13/20 25 Active carBAMazepine XR (TEGretol XR) 100 mg 12 hr tablet Take 1 tablet (100 mg total) by mouth at bedtime for 5 days, THEN 1 tablet (100 mg total) 2 (two) times a day for 7 days, THEN 2 tablets (200 mg total) 2 (two) times a day. Do not crush, chew, or split.. 259 tablet 4 02/01/20 25 Discontinu ed(Reorder ) Active Problems Problem Noted Date Diagnosed Date Multiple sclerosis 02/04/2023 Encounters Date Type Department Care Team Description 02/17/2025 9:00 AM EDT Office Visit [address] [phone] Theresa Kendrick PA Multiple sclerosis (CMS/HCC) (Primary Dx) 02/17/2025 8:00 AM EDT - 02/17/2025 11:59 PM EDT Hospital Encounter [facility] Outpatient Rehabilititation [address] [phone] Multiple sclerosis (CMS/HCC) (Primary Dx); Vitamin D deficiency Discharge Disposition: Home or Self Care 01/05/[address] [facility] Outpatient Rehabilititation [address] [phone] Meghan Low MD OCREVUS AUTH RQST; AUTH NOT REQRD 12/24/2024 9:30 AM EST Office Visit [address] [phone] Theresa Kendrick PA Multiple sclerosis (CMS/HCC) (Primary Dx); Trigeminal neuralgia 12/03/2024 2:33 PM EST - 12/03/2024 11:59 PM EST Hospital Encounter [facility] MRI [address] [place] [phone] MS (multiple sclerosis) ([facility]) Discharge Disposition: Home or Self Care 12/03/2024 2:22 PM EST - 12/03/2024 11:59 PM EST Hospital Encounter [facility] MRI [address] [place] [phone] MS (multiple sclerosis) (CMS/HCC) Discharge Disposition: Home or Self Care from Last 3 Months Medical History Medical History Date Comments MS (multiple sclerosis) (CMS/HCC) DX:MS (multiple sclerosis) ([facility]) Social History Tobacco Use Types Packs/Day Years [...] Sign Reading Time Taken Comments Blood Pressure 146/74 02/17/2025 11:50 AM EDT Pulse 66 02/17/2025 11:50 AM EDT Temperature 35.9 ??C (96.6 ??F) 02/17/2025 11:50 AM E DT Respiratory Rate 16 02/17/2025 11:50 AM EDT Oxygen Saturation 96% 02/17/2025 11:50 AM EDT Inhaled Oxygen Concentration - - Weight 65.8 kg (145 lb) 12/03/2024 3:01 PM EST Height 152.4 cm (5') 05/25/2024 10:14 AM EDT Body Mass Index 28.32 05/25/2024 10:14 AM EDT Plan of Treatment Upcoming Encounters Date Type Department Care Team (Late st Contact Info) Description 08/17/2025 8:00 AM EDT Appointment [facility] - [place] [address] [phone] 08/17/2025 8:00 AM EDT Office Visit [facility] [place] 175 [facility] [address] [place] [address] Meghan Low MD 175 [facility] [address] [place] [address] Health Maintenance Due Date Last Done [...] Influencers of Health Screening 01/12/2023 COVID-19 Vaccine ( - 2023-2 5 season) 2024 Influenza Vaccine (Season Ended) 2025 09/05/20 22 RSV Immunization Adult Patie nts (1 - 1-dose 75+ series) 2037 HIB [...] age to complete this topic Meningococcal B Vaccine Aged Out No l onger eligible based on patient's age to complete [...] Procedure Name Priority Date/Time Associated Diagnosis Comments CBC WITH AUTO DIFFERENTIAL Routine 02/17/2025 8:40 AM EDT Multiple sclerosis (CMS/HCC) CBC AND DIFFERENTIAL Routine 02/17/2025 8:40 AM EDT Multiple sclerosis (CMS/HCC) HEPATIC FUNCTION PANEL Routine 8:40 AM EDT Multiple sclerosis (CMS/HCC) VITAMIN D 25 HYDROXY Routine 02/17/2025 8:40 AM EDT Multiple sclerosis (CMS/HCC) Vitamin D deficiency VITAMIN B12 Routine 02/17/2025 8:40 AM EDT Multiple sclerosis (CMS/HCC) CREATININE, SERUM Routine 02/17/2025 8:4 0 AM EDT Multiple sclerosis (CMS/HCC) BUN Routine 02/17/2025 8:40 AM EDT Multiple sclerosis (CMS/HCC) LOZADA URINE CULTURE TUBE Routine 12/24/2024 10:59 [...] from Last 3 Months Results * (ABNORMAL) CBC auto differential (02/17/2025 8:40 AM EDT) [facility] Signature WBC 7.0 4.8 - 10.8 K/mcL LAB HEMETOLOGY METHOD 02/17/2025 9:40 AM [facility] RBC 4.40 3.80 - 4.80 M/mcL LAB HEMETOLOGY METHOD 02/17/2025 9:[address] [facility] Hemoglobin 12.9 11.5 - 16.0 g/dL LAB HEMETOLOGY METHOD 02/17/2025 9:40 AM [facility] Hematocrit 39.8 35.0 - 47.0 % LAB HEMETOLOGY METHOD 02/17/2025 9:40 AM [facility] MCV 89.6 79.0 - 98.0 FL LAB HEMETOLOGY METHOD 02/17/2025 9:40 AM [facility] MCH 29.1 27.0 - 32.0 pcg LAB HEMETOLOGY METHOD 02/17/2025 9:40 AM [facility] MCHC 32.4 32.0 - 37.0 g/dL LAB HEMETOLOGY METHOD 02/17/2025 9:40 AM [facility] RDW 12.9 11.0 - 15.0 % LAB HEMETOLOGY METHOD 02/17/2025 9:40 AM [facility] Platelets 231 130 - 400 K/mcL LAB HEMETOLOGY METHOD 02/17/2025 9:40 AM [facility] MPV 11.6(H) 7.0 - 11.0 FL LAB HEMETOLOGY METHOD 02/17/2025 9:40 AM [facility] NRBC 0.0 <1.0 % LAB HEMETOLOGY METHOD 02/17/2025 9:40 AM [facility] NRBC Absolute 0.00 <0.10 K/mcL LAB HEMETOLOGY METHOD 02/17/2025 9:40 AM [facility] Neutrophils Relative 73.3 % LAB HEMETOLOGY METHOD 02/17/2025 9:40 AM [facility] Lymphocytes Relative 16.0 % LAB HEMETOLOGY METHOD 02/17/2025 9:40 AM [facility] Monocytes Relative 8.3 % LAB HEMETOLOGY METHOD 02/17/2025 9:40 AM [facility] Eosinophils Relative 0.9 % LAB HEMETOLOGY METHOD 02/17/2025 9:40 AM [facility] Basophils Relative 1.2 % LAB HEMETOLOGY METHOD 02/17/2025 9:40 AM [facility] Immature Granulocytes Relative 0.3 % LAB HEMETOLOGY METHOD 02/17/2025 9:40 AM [facility] Neutrophils Absolute 5.10 1.50 - 7.00 K/mcL LAB HEMETOLOGY METHOD 02/17/2025 9:40 AM [facility] Lymphocytes Absolute 1.11 1.00 - 5.00 K/mcL LAB HEMETOLOGY METHOD 02/17/2025 9:40 AM [facility] Monocytes Absolute 0.58 0.20 - 1.00 K/mcL LAB HEMETOLOGY METHOD 02/17/2025 9:40 AM [facility] Eosinophils Absolute 0.06 0.00 - 0.50 K/mcL LAB HEMETOLOGY METHOD 02/17/2025 9:40 AM [facility] Basophils Absolute 0.08 0.00 - 0.20 K/mcL LAB HEMETOLOGY METHOD 02/17/2025 9:40 AM [facility] Immature Granulocytes Absolute 0.02 0.00 - 0.03 K/mcL LAB HEMETOLOGY METHOD 02/17/2025 9:[address] [facility] Blood Venous blood specimen / Unknown Venipuncture / Unknown 02/17/2025 8:40 AM EDT 02/17/2025 8:40 AM EDT [facility] BLOOD ORDERABLES Final R esult Performing Organization Address City/[facility] Co de Phone Number [facility] [address] [place] [address], * Creatinine (02/17/2025 8:40 AM EDT) Pathologist [facility] Creatinine 0.56 0.50 - 1.10 mg/dL LAB CHEMISTRY METHOD 02/17/2025 10:[address] [facility] eGFR 103 >=60 mL/min/1. 73m2 LAB CHEMISTRY METHOD 02/17/2025 10:[address] [facility] Comment:Calculation based on the??Chronic Kidney Disease Epidemiology Collaboration (CKD-EPI) equation refit??without adjustment for race. Blood Venous blood specimen / Unknown Venipuncture / Unknown 02/17/2025 8:40 AM EDT 02/17/2025 8:40 AM EDT Theresa SWEENEY LAB BLOOD ORDERABLES Final R esult Performing Organization Address City/[facility] Co de Phone Number [facility] [address] [place] [address], * (ABNORMAL) Vitamin D 25 hydroxy (02/17/2025 8:40 AM EDT) Pathologist [facility] Vit D, 25-Hydroxy 14.0(L) 30.0 - 80.0 ng/mL LAB CHEMISTRY METHOD 02/17/2025 11:[address] [facility] Blood Venous blood specimen / Unknown Venipuncture / Unknown 02/17/2025 8:40 AM EDT 02/17/2025 8:40 AM EDT Theresa SWEENEY LAB BLOOD ORDERABLES Final R esult Performing Organization Address City/[facility]/ZIP Co de Phone Number [facility] [address] [place] [address], [place] [phone] * BUN (02/17/2025 8:40 AM EDT) [facility] BUN 18 5 - 25 mg/dL LAB CHEMISTRY METHOD 02/17/2025 10:[address] [facility] Blood Venous blood specimen / Unknown Venipuncture / Unknown 02/17/2025 8:40 AM EDT 02/17/2025 8:40 AM EDT Theresa SWEENEY LAB BLOOD ORDERABLES Final R esult Performing Organization Address City/[facility]/ZIP Co de Phone Number [facility] [address] [place] [address], [place] [phone] * Vitamin B12 (02/17/2025 8:40 AM EDT) [facility] Vitamin B-12 564 250 - 900 pcg/mL LAB CHEMISTRY METHOD 02/17/2025 10:[address] [facility] Blood Venous blood specimen / Unknown Venipuncture / Unknown 02/17/2025 8:40 AM EDT 02/17/2025 8:40 AM EDT Theresasheeba SWEENEY LAB BLOOD ORDERABLES Final R esult [facility] [address] [place] [address], [place] [phone] * Hepatic function panel (02/17/2025 8:40 AM EDT) [facility] Total Protein 7.5 6.0 - 8.0 g/dL LAB CHEMISTRY METHOD 02/17/2025 10:18 AM [facility] Albumin 4.0 3.2 - 5.0 g/dL LAB CHEMISTRY METHOD 02/17/2025 10:18 AM [facility] Total Bilirubin 0.3 0.0 - 1.4 mg/dL LAB CHEMISTRY METHOD 02/17/2025 10:18 AM [facility] Bilirubin, Direct <0.1 0.0 - 0.3 mg/dL LAB CHEMISTRY METHOD 02/17/2025 10:18 AM [facility] Bilirubin, Indirect LAB CHEMISTRY METHOD 02/17/2025 10:18 AM [facility] Comment:Unable to calculate Indirect Bilirubin. ALT (SGPT) 19 10 - 60 unit/L LAB CHEMISTRY METHOD 02/17/2025 10:18 AM [facility] AST (SGOT) 18 10 - 42 unit/L LAB CHEMISTRY METHOD 02/17/2025 10:18 AM [facility] Alkaline Phosphatase 69 42 - 121 unit/L LAB CHEMISTRY METHOD 02/17/2025 10:18 AM [facility] Blood Venous blood specimen / Unknown Venipuncture / Unknown 02/17/2025 8:40 AM EDT 02/17/2025 8:40 AM EDT Theresa SWEENEY LAB BLOOD ORDERABLES Final R esult [facility] [address] [place] [address], * (ABNORMAL) Urinalysis with reflex microscopic and culture (12/24/2024 10:59 AM EST) [facility] Specific Tarpley Urine 1.018 1.003 - 1.030 LAB URINALYSIS - AUTOMATED METHOD 12/24/2024 2:23 PM [facility] pH, Urine 6.5 5.0 - 8.0 pH LAB URINALYSIS - AUTOMATED METHOD 12/24/2024 2:23 PM [facility] Leukocytes, Urine Trace(A) Negative LAB URINALYSIS - AUTOMATED METHOD 12/24/2024 2:23 PM [facility] Nitrite, Urine Negative Negative LAB URINALYSIS - AUTOMATED METHOD 12/24/2024 2:23 PM [facility] Protein, Urine Negative <=Trace mg/dL LAB URINALYSIS - AUTOMATED METHOD 12/24/2024 2:23 PM [facility] Glucose, Urine Negative Negative mg/dL LAB URINALYSIS - AUTOMATED METHOD 12/24/2024 2:23 PM [facility] Ketones, Urine Negative Negative mg/dL LAB URINALYSIS - AUTOMATED METHOD 12/24/2024 2:23 PM [facility] Urobilinogen, Urine 0.2 0.2 - 1.0 mg/dL LAB URINALYSIS - AUTOMATED METHOD 12/24/2024 2:23 PM [facility] Bilirubin, Urine Negative Negative LAB URINALYSIS - AUTOMATED METHOD 12/24/2024 2:23 PM [facility] Blood, Urine Negative Negative LAB URINALYSIS - AUTOMATED METHOD 12/24/2024 2:23 PM [facility] RBC, Urine 2 0 - 4 /HPF LAB URINALYSIS - AUTOMATED METHOD 12/24/2024 2:23 PM [facility] WBC, Urine 6.4(H) 0 - 4 /HPF LAB URINALYSIS - AUTOMATED METHOD 12/24/2024 2:23 PM [facility] Squamous Epithelial, Urine 25 0 - 60 /LPF LAB URINALYSIS - AUTOMATED METHOD 12/24/2024 2:23 PM [facility] Bacteria, Urine Negative Negative /HPF LAB URINALYSIS - AUTOMATED METHOD 12/24/2024 2:23 PM [facility] Hyaline Casts, Urine 0.0 0 - 3 /LPF LAB URINALYSIS - AUTOMATED METHOD 12/24/2024 2:23 PM [facility] Urine Urine specimen obtained by clean catch procedure / Unknown Non-blood Collection / Unknown 12/24/2024 10:59 AM EST 12/24/2024 10:59 AM EST [facility] URINE ORDERABLES Final R esult Performing Organization Address City/[facility]/ZIP Co de Phone Number [facility] [address] [place] [address], [place] [phone] * Lozada urine culture tube (12/24/2024 10:59 AM EST) Extra Tube Hold for add-ons. 12/24/2024 4:01 PM [facility] Comment:Auto resulted. Urine Urine specimen obtained by clean catch procedure / Unknown Non-blood Collection / Unknown 12/24/2024 10:59 AM EST 12/24/2024 10:59 AM EST [facility] MD LAB URINE ORDERABLES Final R esult Performing Organization Address City/[facility]/ZIP Co de Phone Number [facility] [address] [place] [address], [place] [phone] * Culture urine (12/24/2024 10:59 AM EST) Culture, Urine >100,000 CFU/mL Mixed urogenital jayant, no uropathogens present. Suggest repeat specimen if clinically indicated. 12/26/2024 10:11 AM [facility] Urine Urine specimen obtained by clean catch procedure / Unknown Non-blood Collection / Unknown 12/24/2024 10:59 AM EST 12/24/2024 2:23 PM EST Theresa SWEENEY LAB MICROBIOLOGY - GENERAL O RDERABLES Final Result Performing Organization Address [facility]/ZIP Co de Phone Number [facility] [address] [place] [address], [place] [phone] * (ABNORMAL) Carbamazepine level, total (12/24/2024 9:37 AM EST) Carbamazepine Level 5.4(L) 8.0 - 12.0 mcg/mL LAB CHEMISTRY METHOD 12/24/2024 2:[address] [facility] Blood Venous blood specimen / Unknown Venipuncture / Unknown 12/24/2024 9:37 AM EST 12/24/2024 9:37 AM EST Theresa SWEENEY LAB BLOOD ORDERABLES Final R esult Performing Organization Address [facility] Co de Phone Number [facility] [address] [place] [address], [place] [phone] * MR Cervical Spine wo and w [...] Signed Date: 12/06/2024 17:59 ET Workstation ID: [id number] Transcribed By: Self Edit Transcribed Date: 12/06/2024 [...] Signed Date: 12/06/2024 17:59 ET Workstation ID: [id number] Transcribed By: Self Edit Transcribed Date: 12/06/2024 16:55 ET Theresa SWEENEY Monique MRI PROCEDURES Final Res ult * MR [...] Signed Date: 12/06/2024 18:08 ET Workstation ID: [id number] Transcribed By: Self Edit Transcribed Date: 12/06/2024 [...] hypointense on the T1-weighted spin-echo sequence; the [id number] burden is unchanged. There is stable diffuse [...] Signed Date: 12/06/2024 18:08 ET Workstation ID: [id number] Transcribed By: Self Edit Transcribed Date: 12/06/2024 16:55 ET Theresa SWEENEY IMG MRI PROCEDURES Final Res ult from Last 3 Months Insurance * Guarantor: Ema Lilly Account Type Relation to Patient Date of Phone Billing Address Personal/Family Self [address] [place] [address] [facility] [employer] Care Teams Tractor Technician Relationship Specialty Start Date End Date Michel Khan MD [address] [place] [address] Dr [place] PCP - General Family Medicine 09/16/22
--- OUTSIDE RECORDS SUMMARY | 2025-02-22 12:18 | XMS_ITS | Encounter Summary ---
Author Organization [facility] Address [address] [place] [address] Care Team Providers Care Strainer Mill Operator Name Role Phone Michel Khan MD Primary Care Provider Encounter Details Date Type Department Care Team (Late st Contact Info) Description 08/18/2024 7:55 AM EDT Hospital Encounter TH HISTORIC ENCOUNTERS [facility] ONLY Meghan Low MD [address] [facility] [address] [place] [address] Social History Tobacco Use Types [...] Low MD - 08/18/2024 8:00 AM EDT [facility]ULT[facility]LE SCLEROSIS CC: MS HPI: Patient [...] , Rfl: ??? ergocalciferol (VITAMIN D2) capsule 28050 units, Take 1 capsule (50,000 Units total) [...] also discussed other resources like going to [facility] A. Disease modifying therapy plan: -Continue Ocrevus per [facility] protocol -Screening labs as per protocol [...] 40 minutes. The majority of the actual [id number] visit was spent counseling the patient with respect to the current neurological picture. Meghan Low MD documented in this encounter Plan of Treatment Upcoming Encounters Date Type Department Care Team (Late st Contact Info) Description 08/17/2025 8:00 AM EDT Appointment [facility] Outpatient Re[facility] - [place] 175 [facility] [address] [place] [phone] 08/17/2025 8:00 AM EDT Office Visit [facility] - [place] 175 [facility] [address] [place] [phone] Meghan Low MD 175 [facility] [address] [place] [phone] documented as of this encounter Visit Diagnoses Not on filedocumented in this encounter Care Teams Strainer Mill Operator Relationship Specialty Start Date End Date Michel Khan MD [address] [place] [address] Dr [facility] ELANA Vazquez PCP - General Family Medicine 09/16/22 documented as of this encounter
--- OUTSIDE RECORDS SUMMARY | 2025-02-22 12:18 | XMS_ITS | Encounter Summary ---
Author Organization [facility] Address [address] [place] [address] Care Team Providers Care Station Usher Name Role Phone Michel Khan MD Primary Care Provider [phone] Reason for Visit * Episode Based Medications (Routine) - Authorized Specialty Diagnoses / Procedures Referred By Contac t Referred To Contact Infusion Therapy Diagnoses Multiple sclerosis (CMS/HCC V24, CMS/HCC V28) ocrevus 600 rapid, po benadryl Procedures INFUSION Theresa Kendrick PA [address] [facility] [address] [place] [address] Phone: tel: fax: [facility] [address] [facility] [address] [place] [address] Phone: tel: fax: Referral ID Status Reason Start Date Expiration Date V isits Requested Visits Authorized [id number] Authorized 02/17/2025 02/16/2026 2 2 Encounter Details Date Type Department Care Team (Latest Contact Info) Description 02/17/2025 8:00 AM EDT - 02/17/2025 11:59 PM EDT Hospital Encounter [facility] [address] [facility] [address] [place] [id number] Multiple sclerosis (CMS/HCC) (Primary Dx); Vitamin D deficiency Discharge Disposition: Home or Self Care Social History Tobacco Use Types Packs/Day Years [...] EDT Inhaled Oxygen Concentration - - Weight - - Height - - Body Mass Index - - documented in this encounter Medications at Time of Discharge CALCIUM CARBONATE-VITAMIN D3 ORAL Take by mouth. carBAMazepine XR (TEGretol XR) 100 mg 12 hr tablet Take 1 tablet (100 mg total) by mouth at bedtime for 5 days, THEN 1 tablet (100 mg total) 2 (two) times a day for 7 days, THEN 2 tablets (200 mg total) 2 (two) times a day. Do not crush, chew, or split.. 259 tablet 01/31/2025 04/13/2025 cyanocobalamin (VITAMIN B-12) 100 mcg tablet Take 0.5 tablets (50 mcg total) by mouth daily. ergocalciferol (VITAMIN D-2) 1,250 mcg (50,000 unit) capsule Take 1 capsule (50,000 Units total) by mouth once a week. 05/02/2023 vit B complx/folic acid/lysine (B COMPLEX VITAMINS PO) Take by mouth. documented as of this encounter Discharge Disposition Disposition Code Departure Means Destination Home or Self Care documented in this encounter Progress Notes * Nikki Farrell RN - 02/17/2025 8:00 AM EDTEncounter addended by: Nikki Farrell RN on: 02/17/2025 1:23 PM Actions taken: Clinical Note Signed * Nikki Farrell RN - 02/17/2025 8:00 AM EDT Ocrevus dose 600mg Infusion # 5 completed - Rapid Rates Pt. premedicated with 975mg PO Tylenol, 50mg PO Benadryl, and 125mg IVP Solumedrol. Labs: drawn 02/17/2025 Brain MRI: 12/03/24 Cervical MRI: 12/03/24 LMP: NA Provider: Maranda Last appointment: 08/18/25 Next appointment: 02/17/25 6 month subsequent infusion: 08/17/25 Pt. completed observation period. Pt. verbalized understanding of all discharge instructions and future appointment dates/times provided. Pt. Tolerated infusion without issue. VSS. IV removed, discharge home via ride service. Son aware infusion complete and pt. Being discharged home. documented in this encounter Plan of Treatment Upcoming Encounters Date Type Department Care Team (Late st Contact Info) Description 08/17/2025 8:00 AM EDT Appointment [facility] [place] [address] [facility] [address] [facility] [address] [place] [address] 08/17/2025 8:00 AM EDT Office Visit [facility] [place] [address] [facility] [address] [phone] Meghan Low MD [address] [facility] [address] [facility] [address] [place] [address] documented as of this encounter Procedures Procedure Name Priority Date/Time Associated Diagnosis Comments CBC WITH AUTO DIFFERENTIAL Routine 02/17/2025 8:40 AM EDT Multiple sclerosis ([facility]) CREATININE, SERUM Routine 02/17/2025 8:4 0 AM EDT Multiple sclerosis (CMS/HCC) VITAMIN D 25 HYDROXY Routine 02/17/2025 8:40 AM EDT Multiple sclerosis (CMS/HCC) Vitamin D deficiency CBC AND DIFFERENTIAL Routine 02/17/2025 8:40 AM EDT Multiple sclerosis (CMS/HCC) BUN Routine 02/17/2025 8:40 AM EDT Multiple sclerosis (CMS/HCC) VITAMIN B12 Routine 02/17/2025 8:40 AM EDT Multiple sclerosis (CMS/HCC) HEPATIC FUNCTION PANEL Routine 02/17/2025 8:40 AM EDT Multiple sclerosis (CMS/HCC) documented in this encounter Results * (ABNORMAL) CBC auto differential (02/17/2025 8:40 AM EDT) [facility] WBC 7.0 4.8 - 10.8 K/mcL LAB HEMETOLOGY METHOD 02/17/2025 9:40 AM [facility] RBC 4.40 3.80 - 4.80 M/mcL LAB HEMETOLOGY METHOD 02/17/2025 9:40 AM [facility] Hemoglobin 12.9 11.5 - 16.0 g/dL LAB HEMETOLOGY METHOD 02/17/2025 9:40 AM [facility] Hematocrit 39.8 35.0 - 47.0 % LAB HEMETOLOGY METHOD 02/17/2025 9:40 AM [facility] MCV 89.6 79.0 - 98.0 FL LAB HEMETOLOGY METHOD 02/17/2025 9:40 AM [facility] MCH 29.1 27.0 - 32.0 pcg LAB HEMETOLOGY METHOD 02/17/2025 9:40 AM [facility] MCHC 32.4 32.0 - 37.0 g/dL LAB HEMETOLOGY METHOD 02/17/2025 9:40 AM [facility] RDW 12.9 11.0 - 15.0 % LAB HEMETOLOGY METHOD 02/17/2025 9:40 AM [facility] Platelets 231 130 - 400 K/mcL LAB HEMETOLOGY METHOD 02/17/2025 9:40 AM [facility] MPV 11.6(H) 7.0 - 11.0 FL LAB HEMETOLOGY METHOD 02/17/2025 9:40 AM [facility] NRBC 0.0 <1.0 % LAB HEMETOLOGY METHOD 02/17/2025 9:40 AM [facility] NRBC Absolute 0.00 <0.10 K/mcL LAB HEMETOLOGY METHOD 02/17/2025 9:40 AM [facility] Neutrophils Relative 73.3 % LAB HEMETOLOGY METHOD 02/17/2025 9:40 AM [facility] Lymphocytes Relative 16.0 % LAB HEMETOLOGY METHOD 02/17/2025 9:40 AM [facility] Monocytes Relative 8.3 % LAB HEMETOLOGY METHOD 02/17/2025 9:40 AM [facility] Eosinophils Relative 0.9 % LAB HEMETOLOGY METHOD 02/17/2025 9:40 AM [facility] Basophils Relative 1.2 % LAB HEMETOLOGY METHOD 02/17/2025 9:40 AM [facility] Immature Granulocytes Relative 0.3 % LAB HEMETOLOGY METHOD 02/17/2025 9:40 AM [facility] Neutrophils Absolute 5.10 1.50 - 7.00 K/mcL LAB HEMETOLOGY METHOD 02/17/2025 9:40 AM [facility] Lymphocytes Absolute 1.11 1.00 - 5.00 K/mcL LAB HEMETOLOGY METHOD 02/17/2025 9:40 AM EDT [facility] Monocytes Absolute 0.58 0.20 - 1.00 K/[facility] LAB HEMETOLOGY METHOD 02/17/2025 9:40 AM EDT [facility] Eosinophils Absolute 0.06 0.00 - 0.50 K/[facility] LAB HEMETOLOGY METHOD 02/17/2025 9:40 AM EDT [facility] Basophils Absolute 0.08 0.00 - 0.20 K/[facility] LAB HEMETOLOGY METHOD 02/17/2025 9:40 AM EDT [facility] Immature Granulocytes Absolute 0.02 0.00 - 0.03 K/[facility] LAB HEMETOLOGY METHOD 02/17/2025 9:40 AM EDT [facility] Blood Venous blood specimen / Unknown Venipuncture / Unknown 02/17/2025 8:40 AM EDT 02/17/2025 8:40 AM EDT Theresa SWEENEY LAB BLOOD ORDERABLES Final R esult [facility] [address] [place] [address], * Hepatic function panel (02/17/2025 8:40 AM EDT) Total Protein 7.5 6.0 - 8.0 g/dL LAB CHEMISTRY METHOD 02/17/2025 10:18 AM EDT [facility] Albumin 4.0 3.2 - 5.0 g/dL LAB CHEMISTRY METHOD 02/17/2025 10:18 AM EDT [facility] Total Bilirubin 0.3 0.0 - 1.4 mg/dL LAB CHEMISTRY METHOD 02/17/2025 10:18 AM EDT [facility] Bilirubin, Direct <0.1 0.0 - 0.3 mg/dL LAB CHEMISTRY METHOD 02/17/2025 10:18 AM EDT [facility] Bilirubin, Indirect LAB CHEMISTRY METHOD 02/17/2025 10:18 AM EDT [facility] Comment:Unable to calculate Indirect Bilirubin. ALT (SGPT) 19 10 - 60 unit/L LAB CHEMISTRY METHOD 02/17/2025 10:18 AM EDT [facility] AST (SGOT) 18 10 - 42 unit/L LAB CHEMISTRY METHOD 02/17/2025 10:18 AM EDT [facility] Alkaline Phosphatase 69 42 - 121 unit/L LAB CHEMISTRY METHOD 02/17/2025 10:18 AM EDT [facility] Blood Venous blood specimen / Unknown Venipuncture / Unknown 02/17/2025 8:40 AM EDT 02/17/2025 8:40 AM EDT Theresa SWEENEY LAB BLOOD ORDERABLES Final R esult Performing Organization Address City/[facility]/ZIP Co de Phone Number [facility] [address] [place] [address], [place] [phone] * (ABNORMAL) Vitamin D 25 hydroxy (02/17/2025 8:40 AM EDT) Vit D, 25-Hydroxy 14.0(L) 30.0 - 80.0 ng/mL LAB CHEMISTRY METHOD 02/17/2025 11:16 AM EDT [facility] Blood Venous blood specimen / Unknown Venipuncture / Unknown 02/17/2025 8:40 AM EDT 02/17/2025 8:40 AM EDT Theresa SWEENEY LAB BLOOD ORDERABLES Final R esult Performing Organization Address City/[facility]/ZIP Co de Phone Number [facility] [address] [place] [address], [place] [phone] * Vitamin B12 (02/17/2025 8:40 AM EDT) Vitamin B-12 564 250 - 900 pcg/mL LAB CHEMISTRY METHOD 02/17/2025 10:43 AM EDT [facility] Blood Venous blood specimen / Unknown Venipuncture / Unknown 02/17/2025 8:40 AM EDT 02/17/2025 8:40 AM EDT [facility] LAB BLOOD ORDERABLES Final R esult [facility] [address] [place] [address], * Creatinine (02/17/2025 8:40 AM EDT) Creatinine 0.56 0.50 - 1.10 mg/dL LAB CHEMISTRY METHOD 02/17/2025 10:18 AM EDT [facility] eGFR 103 >=60 mL/min/1. 73m2 LAB CHEMISTRY METHOD 02/17/2025 10:18 AM EDT [facility] Comment:Calculation based on the??Chronic Kidney Disease Epidemiology Collaboration (CKD-EPI) equation refit??without adjustment for race. Blood Venous blood specimen / Unknown Venipuncture / Unknown 02/17/2025 8:40 AM EDT 02/17/2025 8:40 AM EDT [facility] [place] LAB BLOOD ORDERABLES Final R esult [facility] [address] [place] [address], [place] [phone] * BUN (02/17/2025 8:40 AM EDT) BUN 18 5 - 25 mg/dL LAB CHEMISTRY METHOD 02/17/2025 10:18 AM EDT [facility] Blood Venous blood specimen / Unknown Venipuncture / Unknown 02/17/2025 8:40 AM EDT 02/17/2025 8:40 AM EDT Theresa SWEENEY LAB BLOOD ORDERABLES Final R esult [facility] ([facility] [address] [place] [address], documented in this encounter Visit Diagnoses Diagnosis Multiple sclerosis (CMS/HCC)- Primary Multiple sclerosis Vitamin D deficiency documented in this encounter Administered Medications Inactive Administered Medications - up to 3 most recent administrations Medication Order MAR Action Action Date Dose Rate Site acetaminophen (TYLENOL) tablet 975 mg 975 mg, oral, Once, On [place] 02/17/25 at 0900, For 1 doseIndications:Multiple sclerosis (CMS/HCC) Given 02/17/2025 8:52 AM EDT 975 mg diphenhydrAMINE (BENADRYL) capsule 50 mg 50 mg, oral, Once, On [place] 02/17/25 at 0900, For 1 dose Given 02/17/2025 8:52 AM EDT 50 mg methylPREDNISolone sodium succ (SOLU-Medrol) injection 125 mg 125 mg, intravenous, Once, On [place] 02/17/25 at 0900, For 1 dose, Reconstitute each 125 mg vial with 2 mL sterile water for injection to a concentration of 62.5 mg/mL.Indications:Multiple sclerosis (CMS/HCC) Given 02/17/2025 8:53 AM EDT 125 mg ocrelizumab (OCREVUS) 600 mg in sodium chloride 0.9 % 520 mL IVPB 600 mg, intravenous, Once, On [place] 02/17/25 at 0930, For 1 dose, If no prior serious infusion reaction with any previous ocrelizumab infusion, begin infusion at 100 mL/hour for the first 15 minutes. Increase infusion rate to 200 mL/hour for the next 15 minutes. Increase infusion rate to 250 mL/hour for the next 30 minutes. Increase infusion rate to 300 mL/hour for the remaining 60 minutes. Infusion duration is 2 hours or longer. For patients with a history of serious infusion reaction to any previous ocrelizumab infusion, begin infusion at 40 mL/hour; increase by 40 mL/hour every 30 minutes to a maximum rate of 200 mL/hour. Infusion duration is 3.5 hours or longer. Administer though a dedicated IV line using a 0.2 or 0.22 micron in-line filter.Indications:Multiple sclerosis (CMS/HCC) New Bag 02/17/2025 9:15 AM EDT 600 mg documented in this encounter Orders Nursing Count Last Ordered Date First Orde red Date ONC NURSING COMMUNICATION 1 02/17/2025 ONC NURSING COMMUNICATION 10 02/17/2025 ONC NURSING COMMUNICATION 7 1 02/17/2025 TREATMENT CONDITIONS 1 02/17/2025 documented in this encounter Care Teams Station Usher Relationship Specialty Start Date End Date Michel Khan MD [address] [place] [address] Dr Dom [place] PCP - General Family Medicine 09/16/22 documented as of this encounter
--- OUTSIDE RECORDS SUMMARY | 2025-02-22 12:18 | XMS_ITS | Clinical Summary ---
Author Organization [facility] Address [address] [place] [address] Care Team Providers Care Solutions Analyst Name Role Phone Michel Khan MD Primary [...] daily. 0 Active ergocalciferol (VITAMIN D2) capsule 28347 units Take 1 capsule (50,000 Units total) [...] age to complete this topic Care Teams Solutions Analyst Relationship Specialty Start Date End Date Michel Khan MD [facility] [place] [address] PCP - General Family Medicine 09/16/22
== END 2025-02-22 14:30 | disposition home or self-care (01) ==
LOC: HO.HMCFM 10:22
PROVIDERS: PCP Family Medicine; Visit Provider Family Medicine
DX: E78.5 Hyperlipidemia, unspecified (principal); Z13.820 Encounter for screening for osteoporosis; Z12.39 Encounter for other screening for malignant neoplasm of breast

== ENCOUNTER 2025-05-04 12:29 | Outpatient (REF) | payer OTHER, SELFPAY ==
--- NOTE | ~2025-05-04 | MM_ITS ---
EXAMINATION: MM SCREENING DIGITAL BREAST TOMOSYNTHESIS, BILATERAL CLINICAL INFORMATION: Screening. Asymptomatic. COMPARISON: Mammography: Baseline. TECHNIQUE: Digital breast mammography with tomosynthesis is performed in both the craniocaudal and mediolateral oblique views along with computer-aided detection (CAD). FINDINGS: There are scattered areas of fibroglandular density (ACR BI-RADS breast composition Category b). Right: There are no significant masses, abnormal calcifications, or other abnormalities. Left: Focal asymmetry lower inner breast middle to posterior depth. There is an adjacent clip to the focal asymmetry but not within the focal asymmetry. No suspicious other abnormal findings or calcifications. MM/MM tomosynthesis screening BI IMPRESSION: Additional imaging is recommended ASSESSMENT: BI-RADS BI-RADS 0 - Incomplete: Needs additional Imaging. RECOMMENDATION: 1. Additional views of the right breast. 2. Targeted ultrasound if warranted after review of the additional views. 3. Radiology department staff will contact the patient for additional imaging. Additional Imaging required This examination should not preclude the clinical evaluation of a suspicious palpable abnormality. This patient's information was entered into a reminder system with a target due date for their next mammogram. Electronically signed by: Maryanne Pollack DO 05/09/2025 06:13 PM EDT
--- NOTE | ~2025-05-04 | MM_ITS ---
EXAMINATION: DXA BONE DENSITY AXIAL HISTORY: M81.0 - Age-related osteoporosis without current pathological fracture TECHNIQUE: Vinsula Dual energy absorptiometry (DEXA) of the lumbar spine, total left hip, and femoral neck was performed. COMPARISON: There are no prior studies for comparison. FINDINGS: The bone mineral density of the lumbar spine is 0.942, corresponding to a T-score of -2.0, and a Z-score of -0.5. This is indicative of osteopenia. The bone mineral density of the left total hip is 0.856, corresponding to a T-score of -1.2, and a Z-score of -0.1. This is indicative of osteopenia. The bone mineral density of the left femoral neck is 0.807, corresponding to a T-score of -1.7, and a Z-score of -0.2. This is indicative of osteopenia. FRACTURE RISK: The FRAX index suggests a risk of major osteoporotic fracture of 4.9%, and of hip fracture 0.6%. MM/XR DEXA axial skeleton IMPRESSION: Based on bone mineral density, and according to World Health Organization (WHO) criteria, the diagnosis is consistent with osteopenia. All bone density values are in grams per centimeter squared (g/cm2). Statistically, 68% of repeat scans fall within 1 SD (+/- 0.010 g/cm2 for AP spine L1-L4) and 1 SD (+/- 0.012 g/cm2 for femur total) FRAX is a trademark of the [employer] [place] for Metabolic Bone Disease, a World Health Organization (WHO) Collaborating Center. Electronically signed by: Meir Richards MD 05/09/2025 07:06 AM EDT
--- OUTSIDE RECORDS SUMMARY | 2025-05-04 14:19 | XMS_ITS | Clinical Summary ---
Author Organization 175 [facility] Address 175 [place] [address] Phone Care Team Providers Care Cannoneer Name Role Phone Michel Khan MD Primary Care Provider [phone] Allergies Active Allergy Reactions Criticality Noted Date [...] (50 mcg total) by mouth daily. Active gabapentin (NEURONTIN) 400 mg capsule Take 1 capsule (400 mg total) by mouth 3 (three) times a day for 5 days, THEN 1 capsule (400 mg total) 2 (two) times a day for 7 days, THEN 1 capsule (400 mg total) at bedtime. 90 capsule 3 11/12/2024 Active escitalopram (Lexapro) 10 mg tablet Take 1 tablet (10 mg total) by mouth 1 (one) time each day. 30 each 5 02/28/2025 Active carBAMazepine XR (TEGretol XR) 100 mg 12 hr tablet 1 p.o. in a.m. and 2 p.o. at bedtime 90 tablet 5 03/04/2025 Active Active Problems Problem Noted Date Diagnosed Date Multiple sclerosis ([facility], [facility] V28) Encounters Date Type Department Care Team Description 04/05/[address] [place] [address] Theresa Kendrick PA 03/04/2025 Telephone [facility] 175 [facility] [address] [place] [address] Theresa Kendrick PA 02/17/2025 9:00 AM EDT Office Visit [address] [place] [address] Theresa Kendrick PA Multiple sclerosis ([facility], [facility] V28) (Primary Dx) 02/17/2025 8:00 AM EDT - 02/17/2025 11:59 PM EDT Hospital Encounter [facility] Outpatient Rehabilititation - [address] [place] [phone] Multiple sclerosis ([facility], [facility] V28) (Primary Dx); Vitamin D deficiency Discharge Disposition: Home or Self Care from Last 3 Months Medical History Medical History Date Comments MS (multiple sclerosis) ([facility] V24, [facility] V[facility]) DX:MS (multiple sclerosis) ( [facility]) Social History Tobacco Use Types [...] 66 02/17/2025 11:50 AM EDT Temperature 35.9 C (96.6 F) 02/17/2025 11:50 AM EDT Respiratory Rate 16 02/17/2025 11:50 AM EDT Oxygen Saturation 96% 02/17/2025 11:50 AM EDT Inhaled Oxygen Concentration - - Weight 65.8 kg (145 lb) 12/03/2024 3:01 PM EST Height 152.4 cm (5') 05/25/2024 10:14 AM EDT Body Mass Index 28.32 05/25/2024 10:14 AM EDT Plan of Treatment Upcoming Encounters Date Type Department Care Team (Late st Contact Info) Description 06/03/2025 4:00 PM EDT Office Visit [facility] [address] [phone] Theresa Kendrick PA [address] [address] 08/17/2025 8:00 AM EDT Appointment [facility] Outpatient Rehabilititation - [employer] [address] [phone] 08/17/2025 8:00 AM EDT Office Visit [facility] [address] [phone] Meghan Low MD [address] [phone] Health Maintenance Due Date Last Done Comments [...] 2024 Influenza Vaccine (Season Ended) 2025 09/05/20 RSV Immunization Adult Patie nts (1 - [...] Routine 02/17/2025 8:40 AM EDT Multiple sclerosis ([facility]/HCC V24, [facility] V28) CBC AND DIFFERENTIAL Routine 02/17/2025 8:40 AM EDT Multiple sclerosis ([facility]/HCC V24, CMS/HCC V28) HEPATIC FUNCTION PANEL Routine 02/17/2025 8:40 AM EDT Multiple sclerosis ([facility]/HCC V24, CMS/HCC V28) VITAMIN D 25 HYDROXY Routine 02/17/2025 8:40 AM EDT Multiple sclerosis ([facility]/HCC V24, CMS/HCC V28) Vitamin D deficiency VITAMIN B12 Routine 02/17/2025 8:40 AM EDT Multiple sclerosis ([facility], [facility] V28) CREATININE, SERUM Routine 02/17/2025 8:4 0 AM EDT Multiple sclerosis ([facility] V24, [facility] V28) BUN Routine 02/17/2025 8:40 AM EDT Multiple sclerosis ([facility], [facility] V28) from Last 3 Months Results * (ABNORMAL) CBC auto differential (02/17/2025 8:40 AM EDT) Pathologist [facility] WBC 7.0 4.8 - 10.8 K/mcL LAB HEMETOLOGY METHOD 02/17/2025 9:40 AM [facility] RBC 4.40 3.80 - 4.80 M/mcL LAB HEMETOLOGY METHOD 02/17/2025 9:40 AM [facility] Hemoglobin 12.9 11.5 - 16.0 g/dL LAB HEMETOLOGY METHOD 02/17/2025 9:40 AM [facility] Hematocrit 39.8 35.0 - 47.0 % LAB HEMETOLOGY METHOD 02/17/2025 9:40 AM [facility] MCV 89.6 79.0 - 98.0 FL LAB HEMETOLOGY METHOD 02/17/2025 9:40 AM [facility] MCH 29.1 27.0 - 32.0 pcg LAB HEMETOLOGY METHOD 02/17/2025 9:40 AM [facility] MCHC 32.4 32.0 - 37.0 g/dL LAB HEMETOLOGY METHOD 02/17/2025 9:40 AM [facility] RDW 12.9 11.0 - 15.0 % LAB HEMETOLOGY METHOD 02/17/2025 9:40 AM [facility] Platelets 231 130 - 400 K/mcL LAB HEMETOLOGY METHOD 02/17/2025 9:40 AM [facility] MPV 11.6(H) 7.0 - 11.0 FL LAB HEMETOLOGY METHOD 02/17/2025 9:40 AM [facility] NRBC 0.0 <1.0 % LAB HEMETOLOGY METHOD 02/17/2025 9:40 AM [facility] NRBC Absolute 0.00 <0.10 K/mcL LAB HEMETOLOGY METHOD 02/17/2025 9:40 AM [facility] Neutrophils Relative 73.3 % LAB HEMETOLOGY METHOD 02/17/2025 9:40 AM [facility] Lymphocytes Relative 16.0 % LAB HEMETOLOGY METHOD 02/17/2025 9:40 AM [facility] Monocytes Relative 8.3 % LAB HEMETOLOGY METHOD 02/17/2025 9:40 AM [facility] Eosinophils Relative 0.9 % LAB HEMETOLOGY METHOD 02/17/2025 9:40 AM [facility] Basophils Relative 1.2 % LAB HEMETOLOGY METHOD 02/17/2025 9:40 AM [facility] Immature Granulocytes Relative 0.3 % LAB HEMETOLOGY METHOD 02/17/2025 9:40 AM [facility] Neutrophils Absolute 5.10 1.50 - 7.00 K/mcL LAB HEMETOLOGY METHOD 02/17/2025 9:40 AM [facility] Lymphocytes Absolute 1.11 1.00 - 5.00 K/mcL LAB HEMETOLOGY METHOD 02/17/2025 9:40 AM [facility] Monocytes Absolute 0.58 0.20 - 1.00 K/mcL LAB HEMETOLOGY METHOD 02/17/2025 9:40 AM [facility] Eosinophils Absolute 0.06 0.00 - 0.50 K/mcL LAB HEMETOLOGY METHOD 02/17/2025 9:40 AM EDT [facility] Basophils Absolute 0.08 0.00 - 0.20 K/[facility] LAB HEMETOLOGY METHOD 02/17/2025 9:40 AM EDT [facility] Immature Granulocytes Absolute 0.02 0.00 - 0.03 K/[facility] LAB HEMETOLOGY METHOD 02/17/2025 9:40 AM EDT [facility] Blood Venous blood specimen / Unknown Venipuncture / Unknown 02/17/2025 8:40 AM EDT 02/17/2025 8:40 AM EDT [facility] LAB BLOOD ORDERABLES Final R esult Performing Organization Address [facility]/ZIP Co de Phone Number [facility] [address] [place] [address], [place] [phone] * Creatinine (02/17/2025 8:40 AM EDT) Creatinine 0.56 0.50 - 1.10 mg/dL LAB CHEMISTRY METHOD 02/17/2025 10:18 AM EDT [facility] eGFR 103 >=60 mL/min/1. 73m2 LAB CHEMISTRY METHOD 02/17/2025 10:18 AM EDT [facility] Comment:Calculation based on the Chronic Kidney Disease Epidemiology Collaboration (CKD-EPI) equation refit without adjustment for race. Blood Venous blood specimen / Unknown Venipuncture / Unknown 02/17/2025 8:40 AM EDT 02/17/2025 8:40 AM EDT Theresa Fermin [facility] LAB BLOOD ORDERABLES Final R esult Performing Organization Address City/[facility]/ZIP Co de Phone Number [facility] [address] [place] [address], * (ABNORMAL) Vitamin D 25 hydroxy (02/17/2025 8:40 AM EDT) Vit D, 25-Hydroxy 14.0(L) 30.0 - 80.0 ng/mL LAB CHEMISTRY METHOD 02/17/2025 11:16 AM EDT [facility] Blood Venous blood specimen / Unknown Venipuncture / Unknown 02/17/2025 8:40 AM EDT 02/17/2025 8:40 AM EDT Theresa SWEENEY LAB BLOOD ORDERABLES Final R esult [facility] [address] [place] [address], [place] [phone] * BUN (02/17/2025 8:40 AM EDT) Pathologist [facility] BUN 18 5 - 25 mg/dL LAB CHEMISTRY METHOD 02/17/2025 10:18 AM EDT [facility] Blood Venous blood specimen / Unknown Venipuncture / Unknown 02/17/2025 8:40 AM EDT 02/17/2025 8:40 AM EDT Theresa WSEENEY LAB BLOOD ORDERABLES Final R esult [facility] [address] [place] [address], [place] [phone] * Vitamin B12 (02/17/2025 8:40 AM EDT) Pathologist [facility] Vitamin B-12 564 250 - 900 pcg/mL LAB CHEMISTRY METHOD 02/17/2025 10:43 AM EDT [facility] Blood Venous blood specimen / Unknown Venipuncture / Unknown 02/17/2025 8:40 AM EDT 02/17/2025 8:40 AM EDT us Theresa SWEENEY LAB BLOOD ORDERABLES Final R esult [facility] [address] [place] [address], [place] [phone] * Hepatic function panel (02/17/2025 8:40 AM EDT) Total Protein 7.5 6.0 - 8.0 g/dL LAB CHEMISTRY METHOD 02/17/2025 10:18 AM EDT [facility] Albumin 4.0 3.2 - 5.0 g/dL LAB CHEMISTRY METHOD 02/17/2025 10:18 AM EDT [facility] Total Bilirubin 0.3 0.0 - 1.4 mg/dL LAB CHEMISTRY METHOD 02/17/2025 10:18 AM EDT [facility] Bilirubin, Direct <0.1 0.0 - 0.3 mg/dL LAB CHEMISTRY METHOD 02/17/2025 10:18 AM EDT [facility] Bilirubin, Indirect LAB CHEMISTRY METHOD 02/17/2025 10:18 AM EDT [facility] Comment:Unable to calculate Indirect Bilirubin. ALT (SGPT) 19 10 - 60 unit/L LAB CHEMISTRY METHOD 02/17/2025 10:18 AM EDT [facility] AST (SGOT) 18 10 - 42 unit/L LAB CHEMISTRY METHOD 02/17/2025 10:18 AM EDT [facility] Alkaline Phosphatase 69 42 - 121 unit/L LAB CHEMISTRY METHOD 02/17/2025 10:18 AM EDT [facility] Blood Venous blood specimen / Unknown Venipuncture / Unknown 02/17/2025 8:40 AM EDT 02/17/2025 8:40 AM EDT Theresa SWEENEY LAB BLOOD ORDERABLES Final R esult [facility] [address] [place] [address], [place] [phone] from Last 3 Months Insurance * Guarantor: Ema Lilly Account Type Relation to Patient Date of Phone Billing Address Personal/Family Self 1960 [address] [place] [address] [facility] Care Teams Cannoneer Relationship Specialty Start Date End Date Michel Khan MD [address] [place] [address] Dr Dom [place] PCP - General Family Medicine 09/16/22
== END 2025-05-04 12:30 | disposition home or self-care (01) ==
LOC: HO.MAMMO 12:29
PROVIDERS: PCP Family Medicine; Visit Provider Family Medicine
DX: Z12.31 Encounter for screening mammogram for malignant neoplasm of breast (principal); M81.0 Age-related osteoporosis without current pathological fracture
CPT/HCPCS: 77063; 77067; 77080

== ENCOUNTER → 2025-05-04 13:00 | Outpatient (BNV) | payer OTHER, SELFPAY | PROVIDERS: PCP Family Medicine; Visit Provider Radiology Diagnostic Radiology | DX: E28.39 Other primary ovarian failure (principal); Z12.31 Encounter for screening mammogram for malignant neoplasm of breast | CPT/HCPCS: 77063; 77067; 77080 ==

== ENCOUNTER 2025-06-21 10:20 | Outpatient (REF) | payer OTHER, SELFPAY ==
--- NOTE | ~2025-06-21 | MM_ITS ---
EXAMINATIONS: 1. MM DIAGNOSTIC DIGITAL BREAST TOMOSYNTHESIS, RIGHT 2. Targeted ultrasound of the right breast CLINICAL INFORMATION: Callback from screening for right breast focal asymmetry in the lower-inner quadrant middle to posterior depth, adjacent to the biopsy clip. No prior records available for comparison. COMPARISON: New baseline study on June 03, 2025. TECHNIQUE: Digital breast tomosynthesis is performed in full field ML 90 degrees along with computer-aided detection (CAD). Synthesized 2D images are generated from the tomosynthesis. Spot compression tomosynthesis images were also obtained. Best possible images according to the technologist. FINDINGS: BREAST COMPOSITION: There are scattered areas of fibroglandular density (ACR BI-RADS breast composition Category b). RIGHT BREAST: Previously described focal asymmetry is redemonstrated on today's images, measuring approximately 0.5 cm in size and located in the lower inner quadrant at about 6 cm from the nipple (spot MLO 29/61 and spot CC 18/55). This is located in the immediate vicinity of a previous biopsy marker. Targeted ultrasound of the right breast was performed at the location of the mammographic finding. The survey shows a 0.5 x 0.3 x 0.4 cm hypoechoic lesion at 3 o'clock position 7 cm from the nipple. No definite internal vascularity demonstrated with color Doppler evaluation. No adjacent biopsy clip could be identified with confidence. It is uncertain if this sonographic finding correlates with the mammographic finding. MM/MM tomosynthesis added views R IMPRESSION: RIGHT BREAST: 0.5 cm hypoechoic lesion at the 3 o'clock position 7 cm of the nipple, possibly correlating with the focal asymmetry in the lower inner quadrant adjacent to a biopsy clip. Today, these findings will be considered probably benign. A 6-month follow-up mammogram and ultrasound is recommended. According to the patient's son, the patient had prior studies in [place]. Attempts will be made to obtain prior images/reports; if we succeed, an addendum will be made and the management may change. ASSESSMENT: BI-RADS 3 - Probably benign finding(s) - 6 month follow-up suggested RECOMMENDATION: 6 Month F/U Results were provided to the patient at time of visit by the technologist. This patient's information was entered into a reminder system with a target due date for their next mammogram. Electronically signed by: Dejuan Garza MD 06/21/2025 11:32 AM EDT
--- OUTSIDE RECORDS SUMMARY | 2025-06-21 11:00 | XMS_ITS ---
Author Name [facility] Organization Unknown History of Medication Use Medication Directions Dispensed Refills Start Date End Date Status gabapentin (NEURONTIN) 400 MG capsule Take 1 capsule (400 mg total) by mouth 3 (three) times a day. 4 active gabapentin (NEURONTIN) 100 MG capsule Take 1 capsule (100 mg total) by mouth 3 (three) times a day. 4 active acetaminophen (TYLENOL) tablet 975 mg 975 mg, Oral, Once, On Fri02/17/24 at 1115, For 1 doseGive 30 minutes prior to ocrelizumab. 3 02/17/20 24 completed diphenhydrAMINE (BENADRYL) injection 50 mg 50 mg, Intravenous, Once, On Fri02/17/24 at 1115, For 1 doseGive 30 minutes prior to ocrelizumab. IV push over 2-3 minutes. See PO diphenhydramine order. Please give PO or IV. Common Side Effects: Drowsiness, stomach upset, confusion, dry mouth. Administer undiluted. Maximum rate 25 mg/min. 3 02/17/20 24 completed ocrelizumab (OCREVUS) 600 mg in sodium chloride (NS) 0.9 % 500 mL IVPB 600 mg, Intravenous, Once, On Fri02/17/24 at 1115, For 1 doseMust use in-line 0.22 micron filter. - Infusion Rate for first full 600 mg dose or reaction with previous infusion: Start at 40 mL/hr. Increase by 40 mL/hr every 30 minutes. Maximum rate: 200 mL/hr. Duration: 3.5 hours or longer. - Infusi 3 02/17/20 24 completed B Complex Vitamins (B COMPLEX 1 PO) Take by mouth. acti ve vitamin B-12 (CYANOCOBALAMIN) 100 MCG tablet Take 0.5 tablets (50 mcg total) by mouth daily. active Allergies Allergen Reaction Severity Comment Documented Date Source Statu s SULFA ANTIBIOTICS 01/02/2023 [facility] ac tive PENICILLINS [facility] Problems Problem Status Onset Date Problem Type Date of Resoluti on Source Multiple sclerosis active 2023-02-04 ProblemAct [facility] Care Team Organization Name Specialty Phone Email Start Date End Da te [facility] 09/24/2022 07/05/2024
--- OUTSIDE RECORDS SUMMARY | 2025-06-21 11:00 | XMS_ITS | Clinical Summary ---
Author Organization [facility] Address [address] [place] [address] Care Team Providers Care Velocity Shooter Name Role Phone Michel Khan MD Primary [...] daily. 0 Active ergocalciferol (VITAMIN D2) capsule 34692 units Take 1 capsule (50,000 Units total) [...] 60 08/18/2024 11:49 AM EDT Temperature 36.2 C (97.1 F) 08/18/2024 11:49 AM EDT Respiratory Rate 18 08/18/2024 11:49 AM EDT [...] (1 of 2) 02/25/2012 Influenza Vaccine (#1) 2025 RSV Adult > 60+ Yrs or Pregn [...] age to complete this topic Care Teams Velocity Shooter Relationship Specialty Start Date End Date Michel Khan MD [address] [place] [address] PCP - General Family Medicine 09/16/22
--- OUTSIDE RECORDS SUMMARY | 2025-06-21 11:00 | XMS_ITS | Clinical Summary ---
Author Organization [facility] Address [address] [place] [phone] Phone Care Team Providers Care Metal Drill Operator Name Role Phone Michel Khan MD Primary Care Provider Allergies Active Allergy Reactions Criticality Noted Date Comments Penicillins 01/02/2023 Sulfa (Sulfonamide Antibiotics) 12/18 Medications CALCIUM CARBONATE-VITAMI N D3 ORAL Take by mouth. Active VITAMIN B COMPLEX ORAL Take by mouth. Active ergocalciferol (DRISDOL) 50,000 unit capsule Take 50,000 Units by mouth once a week. 02/18/2024 Active escitalopram oxalate (LEXAPRO) 10 MG tablet Take 10 mg by mouth. 10/04/2024 Active gabapentin (NEURONTIN) 400 MG capsule Take by mouth. 05/05/2024 Active carBAMazepine (TEGRETOL XR) 100 MG 12 hr tablet Take by mouth. 11/12/2024 Active ocrelizumab (OCREVUS IV) Inject into the vein. Active Active Problems Problem Noted Date Diagnosed Date Multiple sclerosis 02/04/2023 Immunizations No known immunizations Social History Tobacco Use Types Packs/Day Years Used Date Smoking Tobacco: Never Assessed Education Answer Date Recorded Are you interested in more education? Not on ludwin e 11/17/2024 Are you concerned about learning? Not on file 11/17/2024 No 11/17/2024 No 11/17/2024 Digital Access Answer Date Recorded No 11/17/2024 No 11/17/2024 Reliable internet access at home? Not on file 11/17/2024 Device with a working camera? Not on file Comments Unknown Sex and Gender Information Value Date Recorded Sex Assigned at Not on file Legal Sex Female 11:02 AM EST Gender Identity Not on file Sexual Orientation Not on file Last Filed Vital Signs Vital Sign Reading Time Taken Comments Blood Pressure 120/78 11/17/2024 11:45 AM EST Pulse 67 11/17/2024 11:45 AM EST Temperature 36.6 C (97.9 F) 11/17/2024 11:45 AM EST Respiratory Rate 16 11/17/2024 11:45 AM EST Oxygen Saturation 100% 11/17/2024 11:45 AM EST Inhaled Oxygen Concentration - - Weight - - Height - - Body Mass Index - - Plan of Treatment Health Maintenance Due Date Last Done Comments Adult Td,Tdap Booster 1960 LIPID PANEL 1960 DEPRESSION SCREENING 1974 SMOKING Hx and SMOKELESS TOB ACCO SCREENING 1975 HEPATITIS C SCREENING 02/25/1980 HIV ONE-TIME SCREENING (18-6 5 YEARS) 02/25/1980 PAP SMEAR 1983 MAMMOGRAM 2002 COLOGUARD 2007 COLONOSCOPY 2007 COLORECTAL CANCER SCREENING 2007 FIT TEST 2007 FOBT 2007 SIGMOIDOSCOPY 2007 VIRTUAL COLONOSCOPY 2007 PNEUMOCOCCAL VACCINES (50+ y ears) (1 of 1 - PCV) 02/25/2012 ZOSTER VACCINES (1 of 2) 02/25/2012 COVID-19 VACCINE ( - 2023-2 5 season) 2024 RSV VACCINE (1 - 1-dose 75+ series) 2037 HEPATITIS A VACCINES Aged Out No long er eligible based on patient's age to complete this topic HIB VACCINES Aged Out No longer eligi ble based on patient's age to complete this topic MENINGOCOCCAL VACCINES (ACWY) Aged Out No longer eligible based on patient's age to complete this topic MENINGOCOCCAL VACCINES (B) Aged Out N o longer eligible based on patient's age to complete this topic Medical Devices Not on file Insurance [place] [address] [place] [address] [facility] [facility] [address] [id number] [place] [facility] [address] [id number] [place] [facility] [address] [id number] [facility] [place] [address] Care Teams Metal Drill Operator Relationship Specialty Start Date End Date Michel Khan MD [address] [place] [address] PCP - General Family Medicine 11/17/24 Additional Source Comments The information contained in this document represents components of the legal health record. It is not the complete legal health record.[facility]
--- OUTSIDE RECORDS SUMMARY | 2025-06-21 11:00 | XMS_ITS | Clinical Summary ---
Author Organization [address] [facility] Address [address] [place] [address] Phone Care Team Providers Care Manager Rn Name Role Phone Michel Khan MD Primary [...] at bedtime. 90 capsule 3 4 Active escitalopram (Lexapro) 10 mg tablet Take 1 tablet (10 mg total) by mouth 1 (one) time each day. 30 each 5 5 08/27/20 25 Active carBAMazepine XR (TEGretol XR) 100 mg 12 hr tablet 1 p.o. in a.m. and 2 p.o. at bedtime 90 tablet 5 5 Active ocrelizumab (OCREVUS IV) Infuse into a venous catheter. Active mirabegron (Myrbetriq) 25 mg 24 hr tablet Take 1 tablet (25 mg total) by mouth 1 (one) time each day. Active rosuvastatin (CRESTOR) 5 mg tablet Take 1 tablet (5 mg total) by mouth 1 (one) time each day. Active levothyroxine (SYNTHROID, LEVOTHROID) 25 mcg tablet Take by mouth 1 (one) time each day before breakfast. Active carBAMazepine XR (TEGretol XR) 100 mg 12 hr tablet 1 p.o. in a.m. and 2 p.o. at bedtime 90 tablet 5 5 05/26/20 25 Discontinu ed(Reorder ) Active Problems Problem Noted Date Diagnosed Date Multiple sclerosis ([facility] V24, [facility] V28) Encounters Date Type Department Care Team Description 06/03/2025 4:00 PM EDT Office Visit [address] [phone] Theresa Kendrick PA Multiple sclerosis ([facility] V24, [facility] V28) (Primary Dx); Trigeminal neuralgia 04/05/[address] [phone] Theresa Kendrick PA from Last 3 Months Medical History Medical History Date Comments MS (multiple sclerosis) ([facility] V24, [facility] V28) DX:MS (multiple sclerosis) ( [facility]) Social History Tobacco Use Types [...] Sign Reading Time Taken Comments Blood Pressure 134/79 06/03/2025 4:19 PM EDT Pulse 71 06/03/2025 4:19 PM EDT Temperature 36.6 C (97.9 F) 06/03/2025 4:19 PM EDT Respiratory Rate 16 02/17/2025 11:50 AM EDT Oxygen Saturation 98% 06/03/2025 4:19 PM EDT Inhaled Oxygen Concentration - - Weight 63 kg (138 lb 14.2 oz) 06/03/2025 4:19 PM EDT Height 149.9 cm (4' 11 ) 06/03/2025 4:19 PM EDT Body Mass Index 28.05 06/03/2025 4:19 PM EDT Plan of Treatment Upcoming Encounters Date Type Department Care Team (Late st Contact Info) Description 07/20/2025 7:30 AM EDT Office Visit [facility] [address] [phone] Tehresa Kendrick PA [address] [phone] 08/17/2025 8:00 AM EDT Appointment [facility] [place] [address] [phone] 08/17/2025 8:00 AM EDT Office Visit [facility] [address] [phone] Meghan Low MD [address] [phone] Health Maintenance Due Date Last Done Comments Breast Cancer Screening 1960 DTaP,Tdap,and Td Vaccines (1 - Tdap) 1981 Cervical Cancer Screening: P ap Smear 1983 Pneumococcal Vaccine: 50+ Ye ars (1 of 1 - PCV) 02/25/2012 Zoster Vaccines (1 of 2) 02/25/2012 Colorectal Cancer Screening: Colonoscopy 01/12/2023 HIV Screening 01/12/2023 Hepatitis C Screening 01/12/2023 Social Influencers of Health Screening 01/12/2023 COVID-19 Vaccine (1 - 2023-2 5 season) 2024 Depression Screening 11/17/2024 Influenza Vaccine (#1) 2025 09/05/2022 RSV Immunization Adult Patie nts (1 - [...] on patient's age to complete this topic Insurance * Guarantor: Ema Cruz Account Type Relation to Patient Date of Phone Billing Address Personal/Family Self [address] [place] [address] [place] [address] Care Teams Manager Rn Relationship Specialty Start Date End Date Michel Khan MD [address] [place] [address] Dr Dom [place] PCP - General Family Medicine 09/16/22
== END 2025-06-21 10:21 | disposition home or self-care (01) ==
LOC: HO.MAMMO 10:20
PROVIDERS: PCP Family Medicine; Visit Provider Family Medicine
DX: N64.89 Other specified disorders of breast (principal)
CPT/HCPCS: 76642; 77061; 77065

== ENCOUNTER → 2025-06-21 11:00 | Outpatient (BNV) | payer OTHER, SELFPAY | PROVIDERS: PCP Family Medicine; Visit Provider Radiology Body Imaging | DX: R92.8 Other abnormal and inconclusive findings on diagnostic imaging of breast (principal) | CPT/HCPCS: 76642; 77061; 77065 ==